=== PATIENT | male | born 1960 | race American Indian/Alaskan Native ===

== ENCOUNTER 2017-02-09 14:32 | Inpatient (IN) | payer BC ==
[2017-02-09] MEDS ORDERED: DECADRON IV ONE (15:15)
[2017-02-09] MEDS ORDERED: BENADRYL IV ONE (15:15)
[2017-02-09] MEDS ORDERED: PEPCID IV ONE (15:15)
--- NOTE | 2017-02-09 15:16 | Emergency Department Report ---
ED General Adult HPI - General Chief complaint: Allergic Reaction Stated complaint: LT SIDE MOUTH AND FACE SWOLLEN Time Seen by Provider: 02/09/17 15:04 Source: patient, RN notes reviewed Mode of arrival: Ambulatory Limitations: No Limitations - History of Present Illness Initial comments: This is a 56-year-old male. He is previously unknown to me. His primary care doctor is Dr. Perkins. Past medical history includes hypertension, alcohol dependence, count. Patient has been on lisinopril chronically. The patient presents to the ER with left lip swelling, and left cheek swelling. It started just prior to evaluation. There is no chest pain or shortness of breath. There is no stridor. There is no nausea, vomiting, diarrhea. There is no hematemesis. There is no bright red blood per rectum. The patient does indicate that he was having some seafood right before this started, he thinks he may have accidentally bit his lip but he is not certain. -: Gradual Location: face, mouth Consistency: constant Improves with: none Worsens with: none Associated Symptoms: denies other symptoms - Related Data Home Medications Medication Instructions Recorded Confirmed Last Taken Amlodipine Besylate [Norvasc] 5 mg PO DAILY 12/18/14 02/09/17 02/09/17 Previous Rx's Medication Instructions Recorded Last Taken Type Cyclobenzaprine [Flexeril 10 MG 10 mg PO TID PRN #15 tablet 05/14/16 Unknown Rx TAB] Famotidine [Pepcid] 20 mg PO BID #20 tablet 02/10/17 Unknown Rx Metoprolol [Lopressor TAB] 50 mg PO DAILY #60 tablet 02/10/17 Unknown Rx Prednisone [predniSONE 10 mg 10 mg PO .TAPER #1 tab.ds.pk 02/10/17 Unknown Rx (6-Day Pack, 21 Tabs)] diphenhydrAMINE [Benadryl CAP] 25 mg PO Q8HR PRN #15 capsule 02/10/17 Unknown Rx Allergies Allergy/AdvReac Type Severity Reaction Status Date / Time lisinopril Allergy Severe Angioedema Verified 02/10/17 10:12 ED Review of Systems ROS: Stated complaint: LT SIDE MOUTH AND FACE SWOLLEN Other details as noted in HPI Constitutional: denies: fever Eyes: denies: vision change ENT: as per HPI. denies: epistaxis Respiratory: denies: cough Cardiovascular: denies: chest pain Gastrointestinal: denies: abdominal pain Genitourinary: as per HPI Musculoskeletal: as per HPI Skin: as per HPI Neurological: as per HPI Psychiatric: as per HPI ED Past Medical Hx - Past Medical History Hx Hypertension: Yes Additional medical history: Alcohol dependence, GOUT - Surgical History Past Surgical History?: No - Social History Smoking Status: Never Smoker Substance Use Type: None - Medications Home Medications: Home Medications Medication Instructions Recorded Confirmed Last Taken Type Amlodipine Besylate [Norvasc] 5 mg PO DAILY 12/18/14 02/09/17 02/09/17 History Cyclobenzaprine [Flexeril 10 MG 10 mg PO TID PRN #15 tablet 05/14/16 02/09/17 Unknown Rx TAB] Famotidine [Pepcid] 20 mg PO BID #20 tablet 02/10/17 Unknown Rx Metoprolol [Lopressor TAB] 50 mg PO DAILY #60 tablet 02/10/17 Unknown Rx Prednisone [predniSONE 10 mg 10 mg PO .TAPER #1 tab.ds.pk 02/10/17 Unknown Rx (6-Day Pack, 21 Tabs)] diphenhydrAMINE [Benadryl CAP] 25 mg PO Q8HR PRN #15 capsule 02/10/17 Unknown Rx ED Physical Exam - General Limitations: No Limitations General appearance: alert, in no apparent distress - Head Head exam: Present: atraumatic, normocephalic - Eye Eye exam: Present: normal appearance, EOMI, nystagmus - ENT ENT exam: Present: mucous membranes moist, normal external ear exam, other ( there is swelling noted to the left superior lip, and left external cheek. There is no stridor, dysphonia. There is no pain with tracheal manipulation. The patient is speaking in full sentences.) - Neck Neck exam: Present: normal inspection, full ROM. Absent: tenderness, meningismus - Respiratory Respiratory exam: Present: normal lung sounds bilaterally. Absent: respiratory distress, wheezes, rales, rhonchi, stridor, chest wall tenderness, accessory muscle use, decreased breath sounds, prolonged expiratory - Cardiovascular Cardiovascular Exam: Present: regular rate, normal rhythm, normal heart sounds. Absent: bradycardia, tachycardia, irregular rhythm, systolic murmur, diastolic murmur, rubs, gallop - GI/Abdominal GI/Abdominal exam: Present: soft, normal bowel sounds. Absent: distended, tenderness, guarding, rebound, rigid, pulsatile mass - Rectal Rectal exam: Present: deferred - Extremities Exam Extremities exam: Present: normal inspection, full ROM, normal capillary refill. Absent: tenderness, pedal edema, joint swelling, calf tenderness - Back Exam Back exam: Present: normal inspection, full ROM. Absent: tenderness, CVA tenderness (R), CVA tenderness (L), muscle spasm, paraspinal tenderness, vertebral tenderness - Neurological Exam Neurological exam: Present: alert, oriented X3, normal gait, other (Extraocular movements intact. Tongue midline. No facial droop. Facial sensation intact to light touch in the V1, V2, V3 distribution bilaterally. 5 and 5 strength in 4 extremities.. Sensation is intact to light touch in 4 extremities.). Absent : motor sensory deficit - Psychiatric Psychiatric exam: Present: normal affect, normal mood - Skin Skin exam: Present: warm, dry, intact, normal color. Absent: rash ED Course Vital Signs 02/09/17 02/09/17 02/09/17 14:37 15:15 19:21 Temperature 97.9 F 98.3 F Pulse Rate 84 76 Respiratory 16 20 Rate Blood Pressure 129/80 Blood Pressure 112/66 [Right] O2 Sat by Pulse 99 100 96 Oximetry - Reevaluation(s) Reevaluation #1: 02/09/17 16:46 Differential diagnosis: JUDD inhibitor related angioedema, local lip trauma Assessment and plan: 56-year-old male with probable JUDD inhibitor angioedema. He is afebrile, with reassuring vital signs, tolerating liquid feeds, speaking without stridor. On his initial examination, there is left lateral lip swelling noted, with no obvious break in the skin, no obvious laceration, or abscess. The patient was treated improved with Benadryl, Pepcid, Decadron, and upon reevaluation, his swelling was noted to have moved to the right side of the lip , as well as inferior lip. He is still protecting his airway, and he is not having any upper respiratory distress. Basic laboratory studies ordered. We will continue to observe the patient. He will likely be admitted for airway observation given that his edema appears to be increasing superficially. Reevaluation #2: 02/09/17 18:19 Patient is reassessed. The swelling has involved his upper lip and lower lip. There is no stridor or dysphonia. He is saturating well. He will be admitted for airway observation. The case is presented to the Hospital physician, Dr. Wolf, who accepts the patient to her service. ED Medical Decision Making - Lab Data Result diagrams: 02/10/17 05:48 02/10/17 05:48 Vital Signs 02/09/17 02/09/17 14:37 15:15 Temperature 97.9 F Pulse Rate 84 Respiratory 16 Rate Blood Pressure 129/80 O2 Sat by Pulse 99 100 Oximetry Critical care attestation.: If time is entered above; I have spent that time in minutes in the direct care of this critically ill patient, excluding procedure time. ED Disposition Clinical Impression: Angioedema Qualifiers: Encounter type: initial encounter Qualified Code(s): T78.3XXA - Angioneurotic edema, initial encounter Disposition: OP ADMITTED IP TO THIS HOSP Is pt being admited?: Yes Does the pt Need Aspirin: No Condition: Good
[2017-02-09 16:52] LABS: Hematocrit 37.4 % (35.5-45.6); Hemoglobin 12.6 gm/dl (11.8-15.2); Mean Corpuscular HGB Conc 34 % (32-34); Mean Corpuscular Hemoglobin 30 pg (28-32); Mean Corpuscular Volume 88 fl (84-94); Platelet Count 245 K/mm3 (140-440); Red Blood Count 4.27 M/mm3 (3.65-5.03); Red Cell Distribution Width 12.6 % (13.2-15.2); White Blood Count 5.2 K/mm3 (4.5-11.0)
[2017-02-09 17:51] LABS: BUN/Creatinine Ratio 13.75; Chloride 94.3 mmol/L (98-107); Potassium 3.6 mmol/L (3.6-5.0)
--- NOTE | 2017-02-09 18:28 | History and Physical Report ---
History of Present Illness Date of examination: 02/09/17 Date of admission: 02/09/17 Chief complaint: lip and cheek swelling since today afternoon History of present illness: Very pleasant 56-year-old -[place] male patient with significant past medical history of hypertension presented to the emergency room with left-sided lip and cheek swelling since this afternoon Patient has been eating didn't to not when he suddenly noticed his lip and cheek started swelling from the left side gradually increased to the entire upper and lower lip Patient has history of hypertension on lisinopril for many years Denies any shortness of breath, stridor, or difficulty swallowing Denies chest pain or palpitations Denies headache dizziness weakness or numbness His nausea vomiting or abdominal pain Patient is not allergic to salmon or seafood Past History Past Medical History: hypertension Past Surgical History: No surgical history Social history: lives with family, alcohol abuse ( occasional alcohol use), full code, 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 denies: smoking, prescription drug abuse Family history: hypertension Medications and Allergies Allergies Allergy/AdvReac Type Severity Reaction Status Date / Time No Known Allergies Allergy Verified 12/18/14 17:51 Home Medications Medication Instructions Recorded Confirmed Last Taken Type Amlodipine Besylate [Norvasc] 5 mg PO DAILY 12/18/14 12/18/14 12/18/14 History Lisinopril [Zestril] 20 mg PO QDAY 12/18/14 12/18/14 12/17/14 History Lisinopril/Hydrochlorothiazide 1 tab PO QDAY 12/18/14 12/18/14 12/18/14 History [Zestoretic 20-25 mg] Metoprolol [Lopressor TAB] 50 mg PO DAILY #20 tablet 12/18/14 Unknown Rx Cyclobenzaprine [Flexeril] 10 mg PO TID PRN #15 tablet 05/14/16 Unknown Rx Ibuprofen [Motrin] 800 mg PO Q8HR PRN #20 tablet 05/14/16 Unknown Rx Review of Systems Constitutional: no weight loss, no weight gain, no fever, no chills Ears, nose, mouth and throat: swelling in mouth (swelling upper and lower lip) , other Cardiovascular: no chest pain, no orthopnea, no palpitations Respiratory: no cough with sputum, no shortness of breath Gastrointestinal: no abdominal pain, no nausea, no vomiting Genitourinary Male: no dysuria, no hematuria Musculoskeletal: no neck stiffness, no muscle weakness, no myalgias, no arthritis Integumentary: other (lip swelling), no rash, no pruritis Neurological: no paralysis, no seizures, no syncope Psychiatric: no anxiety, no depression Endocrine: no cold intolerance, no heat intolerance, no polydipsia, no polyuria Hematologic/Lymphatic: no easy bruising, no easy bleeding Allergic/Immunologic: angioedema, no urticaria, no allergic rhinitis Exam - Constitutional Vitals: Temp Pulse Resp BP Pulse Ox 97.9 F 84 16 129/80 100 02/09/17 14:37 02/09/17 14:37 02/09/17 15:15 02/09/17 14:37 02/09/17 15:15 General appearance: Present: mild distress, well-nourished, obese - EENT Eyes: Present: PERRL, EOM intact ENT: other (angioedema.) - Neck Neck: Present: supple, normal ROM - Respiratory Respiratory effort: normal ( Swelling of upper and lower lip) Respiratory: negative: rales, rhonchi, wheezing - Cardiovascular Rhythm: regular Heart Sounds: Present: S1 & S2 - Extremities Extremities: no ischemia, pulses intact, pulses symmetrical Peripheral Pulses: within normal limits - Abdominal General gastrointestinal: Present: soft, non-tender, non-distended, normal bowel sounds - Integumentary Integumentary: Present: clear, warm - Musculoskeletal Musculoskeletal: strength equal bilaterally - Psychiatric Psychiatric: appropriate mood/affect, cooperative - Neurologic Neurologic: CNII-XII intact, moves all extremities Results - Labs CBC & Chem 7: 02/09/17 16:38 02/09/17 16:38 Labs: Abnormal lab results 02/09/17 02/09/17 Range/Units 16:38 16:38 RDW 12.6 L (13.2-15.2) % Sodium 136 L (137-145) mmol/L Chloride 94.3 L (98-107) mmol/L BUN 22 H (9-20) mg/dL Creatinine 1.6 H (0.8-1.5) mg/dL Glucose 103 H (75-100) mg/dL Total Creatine Kinase 536 H (55-170) units/L Assessment and Plan --Angioedema Probably secondary to lisinopril, hold lisinopril IV steroids, IV Benadryl, oxygen titrated to O2 sats more than 90%, closely monitor for any evidence of respiratory distress or failure --History of hypertension Hold lisinopril, resume Norvasc, when necessary hydralazine Closely monitor --Acute renal failure; probably secondary to vasomotor nephropathy Gentle hydration, closely monitor renal function, avoid nephrotoxic medications --Mild elevation of CK, check drug abuse panel Gentle hydration closely monitor CK levels and renal function --Obesity; counseling done patient advised diet modification and exercise as tolerated and weight reduction When medically stable --DVT prophylaxis; with Lovenox --Closely monitor the patient and adjust the management as needed Disposition; admitted to telemetry for close observation Possible discharge in 1-2 days if stable Patient's condition treatment plan discussed in detail with the patient, ER physician as well as his nurse Medical records reviewed
[2017-02-09] MEDS ORDERED: TYLENOL PO PRN (18:31)
[2017-02-09] MEDS ORDERED: AMBIEN PO PRN (18:31)
[2017-02-09] MEDS ORDERED: APRESOLINE IV PRN (18:31)
[2017-02-09] MEDS ORDERED: BENADRYL IV PRN (18:31)
[2017-02-09] MEDS ORDERED: NACL 0.9% 1000 ML 1,000 ML IV SCH (19:00)
--- NOTE | 2017-02-09 19:10 | Admit Criteria Form ---
Admission Criteria Documentation: SYSTEMIC OR INFECTIOUS CONDITION Clinical Indications for Admission to Inpatient Care (Place 'X' for any and all applicable criteria): Hospital admission is needed for appropriate care of the patient because of ANY ONE of the following: []I. Hemodynamic instability indicated by ANY ONE of the following(1)(2)(3)(4 )(5): []a. Vital sign abnormality not readily corrected by appropriate treatment within 12 to 24 hours indicated by ANY ONE of the following: []i) Tachycardia that persists despite appropriate treatment []ii) Hypotension that persists despite appropriate treatment []iii) Orthostatic vital sign changes that persist despite appropriate treatment []b. Vital sign abnormality that is severe indicated by ANY ONE of the following: []i. Inadequate perfusion indicated by ANY ONE of the following : []1) Lactic acidosis (greater than 2 mmol/L) []2) New abnormal capillary refill (greater than 3 seconds) []3) Reduced urine output []4) New altered mental status []5) Myocardial Ischemia []ii. Mean arterial pressure [A] less than 60 mm Hg []iii. Mean arterial pressure[A] less than 70 mm Hg after 30 minutes of appropriate treatment (eg, fluid resuscitation) []iv. Sustained heart rate greater than 120 beats per minute in adult []v. IV inotropic or vasopressor medication required to maintain adequate blood pressure or perfusion []II. Systemic or infectious condition causing severe symptoms or findings not responsive to emergency or observation care treatment (as appropriate) indicated by ANY ONE of the following: []a. Cardiac arrhythmias of immediate concern(1)(2)(3) []b. Severe endocrine disorder (eg, thyrotoxicosis, adrenal insufficiency)(4)(5) []c. Seizures (eg, new or recurrent)(6) []d. New-onset end organ failure or dysfunction as indicated by ANY ONE of the following: []i. Acute unexplained hypoxemia (eg, not from lung infection or chronic disease)(7)(8)(9) []ii. Acute renal failure as indicated by new onset of ANY ONE of the following(10)(11)(12)(13)(14): []1) 3-fold rise in serum creatinine from baseline []2) Serum creatinine greater than 4 mg/dL (354 micromoles/L) with acute rise greater than 0.5 mg/dL (44.2 micromoles/L) []3) Reduction of more than 75% in estimated glomerular filtration rate from baseline. []4) Estimated glomerular filtration rate less than 35 mL/min/1.73m2 ( 0.59 mL/sec/1.73m2) in child younger than 18 years. []5) Cessation of urine output indicated by ALL of the following: []A. Adequate volume status []B. Inadequate urine output as indicated by ANY ONE of the following: []a. Urine output less than 0.3 mL/kg/hr for 24 hours []b. Anuria (urine output less than 0.1 mL/kg/hr) for 12 hours []iii. Acute mental status changes(15) []iv. Acute hepatic failure (eg, plasma bilirubin greater than 4 mg/ dL (68 micromoles/L), new INR greater than 2.0)(16)(17) []e. Unmanageable nausea and vomiting(18) []f. New-onset or uncontrolled central diabetes insipidus(19)(20) []g. Clinically significant dehydration(18)(21) []h. Hypoglycemia(22) []i. Acidosis (pH less than 7.35) or alkalosis (pH greater than 7.45)( 22)(23) []j. Toxic drug level that indicates need for specific monitoring or treatment(24)(25) []k. Severe electrolyte abnormalities indicated by ALL of the following( 1)(2)(3): []i. Electrolytes and associated findings are not as expected for patient baseline or acceptable treatment effects. []ii. Severe abnormalities indicated by ANY ONE of the following: []1) Sodium less than 130 mEq/L (mmol/L) (new) []2) Sodium less than 135 mEq/L (mmol/L) with ANY ONE of the following: []A. Uncorrectable (to near normal or chronic baseline) after trial of outpatient and emergency treatment []B. Altered mental status []C. Seizures []D. Severe medical etiology requiring inpatient management (eg , heart failure, hypovolemia) []3) Sodium greater than 155 mEq/L (mmol/L) []4) Sodium greater than 150 mEq/L (mmol/L) with ANY ONE of the following: []A. Uncorrectable (to near normal or chronic baseline) with outpatient and emergency treatment []B. Altered mental status []C. Seizures []D. Severe medical etiology (eg, hypovolemia, diabetes insipidus) []5) Potassium less than 2.5 mEq/L (mmol/L) despite outpatient and emergency treatment []6) Potassium less than 3 mEq/L (mmol/L) with ANY ONE of the following : []A. Weakness []B. Cardiac abnormality (eg, arrhythmia, conduction disturbance ) []C. Cardiac ischemia []D. Ileus []E. Ongoing medical cause requiring inpatient management (eg, acute renal wasting or SIADH) []F. Other severe symptoms []7) Potassium greater than 6.5 mEq/L (mmol/L) []8) Potassium greater than 5 mEq/L (mmol/L) with ANY ONE of the following: []A. Uncorrectable (to near normal or chronic baseline) with outpatient and emergency treatment []B. Severe ECG findings[A] []C. Acute worsening of renal failure (creatinine greater than 2.5 mg/dL (221 micromoles/L) or significant elevation for age and size) []D. Severe weakness []E. Severe medical etiology (eg, hemolysis, infection, drug overdose) []9) Calcium less than 7 mg/dL (1.75 mmol/L) despite outpatient and emergency treatment(5) []10) Calcium less than 8 mg/dL (2 mmol/L) with significant symptoms or findings (eg, altered mental status, muscle spasms, seizures, breathing difficulty, cardiac abnormality (eg, arrhythmia or conduction disturbance))(5) []11) Calcium greater than 14 mg/dL (3.5 mmol/L)(5) []12) Calcium greater than 12 mg/dL (3 mmol/L) with ANY ONE of the following(5): []A. Uncorrectable (to near normal or chronic baseline) with outpatient and emergency treatment []B. Significant dehydration or hypovolemia as indicated by ALL of the following(3)(6)(7): []a. Not resolved with initial treatments []b. Clinically significant dehydration as indicated by ANY ONE of the following: [](1) Vomiting refractory to outpatient treatment (ie, precluding oral rehydration) [](2) Inability to drink [](3) Hypernatremia or other electrolyte abnormality unable to be corrected with outpatient and emergency treatment [](4) Failure to remain hydrated with outpatient therapy [](5) Reduced urine output [](6) Hypotension [](7) Serious cause for dehydration requiring acute hospitalization ( eg, bowel obstruction, increased intracranial pressure, infectious cause) [](8) Child with ANY ONE of the following(8): [](i) Severe abdominal tenderness [](ii) Adequate care not available at home [](iii) Severe dehydration (greater than 9% loss of body weight) []C. Significant symptoms or findings (eg, altered mental status , cardiac abnormality (eg, arrhythmia, conduction disturbance), malignant etiology requiring inpatient treatment) []13) Phosphorus less than 1 mg/dL (0.32 mmol/L) []14) Phosphorus less than 1.5 mg/dL (0.48 mmol/L) with ANY ONE of the following: []A. Patient unresponsive to outpatient and emergency treatment []B. Significant symptoms or findings (eg, weakness, altered mental status, breathing difficulty, seizures, rhabdomyolysis) []15) Phosphorus greater than 10 mg/dL (3.2 mmol/L) []16) Phosphorus greater than 4.5 mg/dL (1.45 mmol/L) (new) with ANY ONE of the following: []A. Severe medical etiology (eg, crush injury, acute renal failure) []B. Associated hypocalcemia with significant findings (eg, neurologic symptoms, altered mental status, muscle spasms, seizures, breathing difficulty, cardiac abnormality (eg, arrhythmia, conduction disturbance)) []16) Magnesium less than 1 mg/dL (0.41 mmol/L) []17) Magnesium less than 1.5 mg/dL (0.62 mmol/L) with ANY ONE of the following: []A. Patient unresponsive to outpatient and emergency treatment []B. Associated hypocalcemia with significant findings (eg, altered mental status, muscle spasms, seizures, breathing difficulty, cardiac abnormality (eg, arrhythmia, conduction disturbance)) []C. Associated hypokalemia (potassium less than 3 mEq/L (mmol/L )) with risk of arrhythmia []18) Magnesium greater than 4 mEq/L (2 mmol/L) []19) Magnesium greater than 2.5 mEq/L (1.25 mmol/L) with significant symptoms or findings (eg, weakness, altered mental status, cardiac abnormality (eg, arrhythmia, conduction disturbance), breathing difficulty, severe medical etiology (eg, renal failure, hypovolemia)) []20) Uric acid greater than 20 mg/dL (1190 micromoles/L)(9) []21) Uric acid greater than 8 mg/dL (476 micromoles/L) with significant symptoms or findings of tumor lysis syndrome (eg, creatinine greater than 1.5 times upper limit of normal, cardiac abnormality (eg , arrhythmia, conduction disturbance), seizure)(9) []III. High fever or other high-risk infection situation as indicated by ANY ONE of the following(26)(27)(28): []a. Outpatient and observation care antimicrobial treatment unavailable, not effective, or not appropriate []b. Documented bacteremia []c. Temperature greater than 104.9 degrees F (40.5 degrees C) (oral) []d. Temperature greater than 103.1 degrees F (39.5 degrees C) (oral) or less than 96.8 degrees F (36 degrees C) (rectal) that does not respond to emergency treatment and observation care []IV. High-risk febrile neutropenia[A] as indicated by ANY ONE of the following(29)(30)(31)(32): []a. Profound neutropenia[B] anticipated to extend for more than 7 days []b. Hemodynamic instability []c. Hypoxemia []d. Tachypnea []e. Altered mental status []f. New-onset abdominal pain []g. New-onset vomiting or diarrhea []h. Oral or gastrointestinal mucositis that interferes with swallowing or causes severe diarrhea []i. Focal infection (eg, cellulitis, pneumonia, central line or catheter infection, perirectal abscess) []j. Renal insufficiency (eg, GFR of less than 30 mL/min/1.73m2 (0.5 mL/sec /1.73m2)). []k. Severe liver dysfunction (transaminase levels greater than 5 times normal) []l. Platelet count less than 50,000/mm3 (50 x109/L)(33) []m. Leukemia or lymphoma induction therapy []n. Leukemia not in complete remission or with evidence of disease progression []o. Bone marrow transplant patient []p. Alemtuzumab being used for therapy []q. [employer] Association for Supportive Care in Cancer (MASCC) Risk Index score of less than 21[C](33)(35). []V. Isolation required (eg, tuberculosis that requires isolation, Ebola infection)[D](36)(37)(38)(39)(40) []. Gangrene that requires treatment beyond emergency or observation level care(41)(42) []VII. Antitoxin administration and ongoing observation required (eg, tetanus, botulism)(43)(44) []. Suspected infection with rapid progression or severe symptoms as indicated by ANY ONE of the following(45): []a. Streptococcal or staphylococcal toxic shock(46) []b. Diphtheria(47) []c. Hantavirus(48) []d. Severe acute respiratory syndrome(8)(49) []e. Anthrax(50) []f. Ebola[D](36)(37)(38) []g. Necrotizing soft tissue infection(41)(42) []h. Plague(50) []i. Other suspected infection that requires care beyond emergency or observation level care []VII. Severe adverse drug or systemic toxin reaction as indicated by ANY ONE of the following(24): []a. Serotonin syndrome(51)(52) []b. Neuroleptic malignant syndrome(51)(52) []c. Cholinergic syndrome with severe symptoms (eg, bronchorrhea, weakness , mental status changes, seizures)(53) []d. Anticholinergic syndrome []e. Sympathetic syndrome with severe symptoms (eg, seizures, mental status changes, cardiac dysrhythmias) []f. Other severe adverse drug or systemic toxin reaction that remains after emergency or observation level care (as appropriate) []VIII. Allergic reaction with severe symptoms (not responsive to emergency or observation care treatment as appropriate), including ANY ONE of the following(54): []a. Airway edema (pharyngeal, epiglottic, or laryngeal edema) []b. Stridor []c. Respiratory failure []d. Bronchospasm []e. Hypotension []IX. Environmental emergency (not responsive to emergency or observation care treatment as appropriate) as indicated by ANY ONE of the following(55)(56): []a. Hyperthermia []b. Heat stroke []c. Heat exhaustion []d. Hypothermia (temperature less than 95 degrees F (35 degrees C) rectal) (57) []e. Electrocution(58) []X. Complications of transplanted organ (ie, not covered elsewhere)[E] indicated by ANY ONE of the following(59): []a. Acute graft rejection (or graft vs. host disease)[F] requiring inpatient management (eg, intravenous immunosuppression)(60)(61)(62)( 63) []b. Acute failure of transplanted organ necessitating inpatient care (eg, cannot be managed in other setting) []c. Infection requiring inpatient management (eg, Hemodynamic instability, need for intravenous antimicrobial treatment)(64)(65) []d. Other complication of transplanted organ requiring inpatient management [X]XI. Systemic or Infectious Condition condition, symptom, or finding for which emergency and observation care have failed or are not considered appropriate. See General Criteria: Observation Care, General Admission Criteria or Pediatric General Admission Criteria guideline as appropriate. The original [facility] content created by [facility] has been revised. The portions of the content which have been revised are identified through the use of italic text or in bold and [facility] has neither reviewed nor approved the modified material. All other unmodified content is copyright [facility]. Please see references footnoted in the original [facility] edition 2016 Admission Criteria Met: Yes
--- NOTE | 2017-02-09 19:24 | XRay Report ---
FINAL REPORT PROCEDURE: XR CHEST 1V AP TECHNIQUE: Chest radiograph anteroposterior view. CPT 94531 HISTORY: angioedema COMPARISON: No prior studies are available for comparison. FINDINGS: Heart: Normal. Mediastinum/Vessels: Normal contour. Lungs/Pleural space: No infiltrate, effusion, or pneumothorax. Bony thorax: No acute osseous abnormality. Life support devices: None. IMPRESSION: No radiographic evidence of acute cardiopulmonary abnormality.
[2017-02-09 21:14] LABS: Urine Drugs of Abuse Note Disclamer
[2017-02-09] MEDS ORDERED: LOVENOX SUB-Q SCH (22:00)
[2017-02-09] MEDS: PEPCID PO SCH (23:05)
[2017-02-09] MEDS: DECADRON IV SCH (23:13)
[2017-02-10] MEDS: DECADRON IV SCH ×3 (05:25→19:05)
[2017-02-10 06:30] LABS: Basophils % (Auto) 0.1 % (0.0-1.8); Hematocrit 41.5 % (35.5-45.6); Mean Corpuscular HGB Conc 34 % (32-34); Mean Corpuscular Hemoglobin 29 pg (28-32); Mean Corpuscular Volume 87 fl (84-94); Platelet Count 277 K/mm3 (140-440); Red Blood Count 4.75 M/mm3 (3.65-5.03); Red Cell Distribution Width 12.5 % (13.2-15.2); White Blood Count 7.7 K/mm3 (4.5-11.0)
[2017-02-10 06:52] LABS: Anion Gap 23 mmol/L; BUN/Creatinine Ratio 15.71; Blood Urea Nitrogen 22 mg/dL (9-20); Calcium 9.4 mg/dL (8.4-10.2); Carbon Dioxide 23 mmol/L (22-30); Chloride 98.1 mmol/L (98-107); Glucose 162 mg/dL (75-100); Potassium 3.9 mmol/L (3.6-5.0); Sodium 140 mmol/L (137-145)
[2017-02-10] MEDS: PEPCID PO SCH (09:01)
[2017-02-10] MEDS ORDERED: LOPRESSOR PO SCH (10:00)
--- NOTE | 2017-02-10 10:14 | Discharge Summary ---
Providers - Providers Date of Admission: 02/09/17 18:21 Date of discharge: 02/10/17 Attending physician: ALISON JONES Primary care physician: CAITLIN YOU Hospitalization Reason for admission: angioedema Condition: Good Pertinent studies: X-ray; normal Hospital course: Very pleasant 56-year-old -[place] male patient with significant past medical history of hypertension on lisinopril, was admitted through emergency room with history of angioedema secondary to lisinopril allergy with the swelling of upper and lower lip and cheek Patient received high dose of IV steroids and antihistamines, admitted to the hospital managed symptomatically Lisinopril was stopped, and strongly advised the patient that he is allergic to lisinopril and cannot take lisinopril or related ACEI group of medications Patient's blood pressures were closely monitored medications were optimized Today he is comfortable in bed, alert awake oriented 3 Lip and cheek swelling significantly improved, still mild swelling is noted, no shortness of breath or stridor, no difficulty swallowing Patient is ambulatory and tolerating oral nutrition [id number] evaluation physical examination done by me prior to discharge is unremarkable Vital signs are stable Patient is being discharged home, advised to discuss rest and will follow with primary care physician within to 3 days Hemodynamically and clinically stable for discharge and does not need any further acute inpatient care this time Final diagnosis; Angioedema Allergic reaction to lisinopril Hypertension Obesity History of gout Disposition: DISCHARGED TO HOME OR SELFCARE Time spent for discharge: 31 min Core Measure Documentation - Palliative Care Palliative Care/ Comfort Measures: Not Applicable - Core Measures Any of the following diagnoses?: none Exam - Constitutional Vitals: Temp Pulse Resp BP Pulse Ox 99.1 F 71 18 138/73 99 02/10/17 08:00 02/10/17 08:00 02/10/17 08:00 02/10/17 08:00 02/10/17 08:00 General appearance: Present: no acute distress, well-nourished - EENT Eyes: Present: PERRL, EOM intact ENT: other (lip swelling significantly improved) - Neck Neck: Present: supple, normal ROM - Respiratory Respiratory effort: normal Respiratory: negative: rales, rhonchi, wheezing - Cardiovascular Rhythm: regular Heart Sounds: Present: S1 & S2 - Extremities Extremities: no ischemia, pulses intact, pulses symmetrical Peripheral Pulses: within normal limits - Abdominal General gastrointestinal: Present: soft, non-tender, non-distended, normal bowel sounds - Integumentary Integumentary: Present: clear, warm - Musculoskeletal Musculoskeletal: strength equal bilaterally - Psychiatric Psychiatric: appropriate mood/affect, cooperative - Neurologic Neurologic: CNII-XII intact, moves all extremities Plan Activity: no restrictions Diet: low salt Additional Instructions: You serious allergic reaction [angioedema] to Lisinopril. Do not take Lisinopril or ACEI inhibitor group of medications. Advised 2 days rest on 02/11/17 and 02/12/17. Check with primary care physician for further instructions Follow up with: PRIMARY CARE, [Referring] - 3-5 Days Forms: Work/School Release Form Prescriptions: diphenhydrAMINE [Benadryl CAP] 25 mg PO Q8HR PRN #15 capsule PRN Reason: Allergy Symptoms Famotidine [Pepcid] 20 mg PO BID #20 tablet Metoprolol [Lopressor TAB] 50 mg PO DAILY #60 tablet Prednisone [predniSONE 10 mg (6-Day Pack, 21 Tabs)] 10 mg PO .TAPER #1 tab.ds.pk
--- NOTE | 2017-02-10 15:09 | Admit Criteria Form ---
Admission Criteria Documentation: RENAL FAILURE, ACUTE Clinical Indications for Admission to Inpatient Care ( Place 'X' for any and all applicable criteria): Admission is indicated for ALL (if I & II) or III of the following [A](2)(3)(4)( 5)(6)(7): [ ]I. Acute renal failure as indicated by ANY ONE of the following: [ ]a) A 3-fold rise in serum creatinine from baseline [ ]b) Serum creatinine greater than 4 mg/dL (354 micromoles/L) with an acute rise greater than 0.5 mg/dL (44.2 micromoles/L) [ ]c) Reduction of more than 75% in estimated glomerular filtration rate from baseline [ ]d) Estimated glomerular filtration rate less than 35 mL/min/1.73m2 (0.59mL/sec/1.73m2)in a child up to 18 years of age [ ]e) Anuria indicated by ALL of the following: [ ]i) Adequate volume status [ ]ii) Cessation of urine output indicated by ANY ONE of the following: [ ]1) Urine output less than 0.3 mL/kg/hr for 24 hours [ ]2) Anuria (urine output less than 0.1 mL/kg/ hr) for 12 hours [ ] II. Renal failure cannot be managed in an outpatient setting or observational care setting as indicating by ANY ONE of the following: [ ]a) Altered mental status that is severe or persistent [ ]b) Volume overload or Respiratory distress (eg, clinically significant pulmonary edema) that is severe or persistent [ ]c) Cardiac arrhythmias of immediate concern [ ]d) Hemodynamic instability [ ]e) Clinically significant electrolyte abnormality that requires inpatient care (eg, hyperkalemia with severe ECG findings)[B] [ ]f) Clinically significant metabolic abnormality (eg, acidosis) that is severe or persistent [ ]g) Acute treatment of renal failure (eg, renal replacement therapy) not feasible or appropriate in observational care setting [ ]h) Clinical situation too unstable or uncertain (eg, inadequate urine output, ongoing decline in renal function, etiology unclear) [ ]i) Necessary support and caregiver ability to comply with outpatient treatment cannot be arranged in observation care timeframe (eg, within 24 hours) [ ]j) Other significant finding or clinical condition judged not to be within scope of observation care [ ]III.General contraindications and/or Inappropriate clinical situations for Observational Care in patients with Acute Renal Failure, when ANY ONE of the following is required: [ ]a) Prediction of prolongation of LOS based on ANY ONE of the following may be considered as a contraindication for observational care 2, 3, 4, 5, 6, 7, 8 , 9, 10, 11 [ ]i) Age > 65 yrs. [ ]ii) Patient arriving by ambulance [ ]iii) Patient with high acuity [ ]iv) Patient requiring vital sign monitoring [ ]v) Patient on IV medication [ ]b) Systolic blood pressures 180mmHg 3,12 [ ]c) Patient with altered mental status including delirium and other alteration of consciousness, (3) [ ]d) Patient whose discharge disposition will be to a senior living home or rehabilitation home should not be managed in Emergency Department Observation Unit. CMS rule requires 3 days hospital stay before such placement.3,13 [ ]e) Patient with failure to thrive due to broad array of etiologies 3, 16,17 [ ]f) Inability to ambulate 3,14 Extended stay beyond goal length of stay may be needed for(13) [ ]a) Continuing uremic complications [ ]b) Care for comorbidities [ ]c) acute renal failure [ ]d) Need for dialysis The original [employer] content created by [employer] has been revised. The portions of the content which have been revised are identified through the use of italic text or in bold, and [facility] has neither reviewed nor approved the modified material. All other unmodified content is copyright [employer]. Please see references footnoted in the original [facility] edition 2016 Admission Criteria Met: Yes
[2017-02-10 20:19] VITALS: BP 134/76
[2017-02-11] MEDS ORDERED: ZYLOPRIM PO SCH (10:00)
[2017-02-11] MEDS ORDERED: NORVASC PO SCH (10:00)
[2017-02-11] MEDS ORDERED: THALITONE PO SCH (10:00)
== END 2017-02-10 21:30 | disposition home or self-care (01) | DRG 915 ==
LOC: ED 14:32 → 4A 18:21
PROVIDERS: ADMIT Internal Medicine; ATTEND Internal Medicine
DX: T78.3XXA Angioneurotic edema, initial encounter (principal); N17.0 Acute kidney failure with tubular necrosis; E66.9 Obesity, unspecified; I10 Essential (primary) hypertension; T46.4X5A Adverse effect of angiotensin-converting-enzyme inhibitors, initial encounter; M10.9 Gout, unspecified; Z82.49 Family history of ischemic heart disease and other diseases of the circulatory system; Z68.31 Body mass index [BMI] 31.0-31.9, adult; F10.20 Alcohol dependence, uncomplicated; Z71.3 Dietary counseling and surveillance
CPT/HCPCS: 36415; 71010; 80048; 80307; 82550; 83735; 85025; 85027; 85610; 96374; 96375; J1100; J1200; J1650; J7030

== ENCOUNTER 2017-04-27 10:55 | Emergency (ER) | payer BC, OTHER ==
[2017-04-27] MEDS ORDERED: NACL 0.9% 1000 ML 1,000 ML ONE (11:03)
--- NOTE | 2017-04-27 12:09 | Emergency Department Report ---
ED Chest Pain HPI - General Chief Complaint: Chest Pain Stated Complaint: CHEST PAIN Time Seen by Provider: 04/27/17 11:57 Source: patient Mode of arrival: Ambulatory Limitations: No Limitations - History of Present Illness Initial Comments: Patient is a 56 years old male complaining of bilateral chest pain left and right is been going on for 2 days he stated that he held a friends putting on floor in he said he had a lot of smells in starts having some shortness of breath and cough he describes his pain as a sharp pain mostly on the right side increase when he take a deep breath he denied any fever he admitted that he is having greenish sputum. No nausea or vomiting MD Complaint: chest pain -: days(s) Onset: during rest, during exertion Pain Location: left chest, right chest Severity scale (0 -10): 5 Quality: sharp re: denies: nausea, vomting, dyspnea Other Symptoms: cough. denies: fever - Related Data Home Medications Medication Instructions Recorded Confirmed Last Taken Amlodipine Besylate [Norvasc] 5 mg PO DAILY 12/18/14 02/09/17 02/09/17 Allopurinol 02/10/17 Unknown Allopurinol [Zyloprim] 100 mg PO QDAY 02/10/17 02/10/17 Unknown Chlorthalidone [Chlorthalidone] 25 PO 02/10/17 Unknown Previous Rx's Medication Instructions Recorded Last Taken Type Cyclobenzaprine [Flexeril 10 MG 10 mg PO TID PRN #15 tablet 05/14/16 Unknown Rx TAB] Famotidine [Pepcid] 20 mg PO BID #20 tablet 02/10/17 Unknown Rx Metoprolol [Lopressor TAB] 50 mg PO DAILY #60 tablet 02/10/17 Unknown Rx Prednisone [predniSONE 10 mg 10 mg PO .TAPER #1 tab.ds.pk 02/10/17 Unknown Rx (6-Day Pack, 21 Tabs)] diphenhydrAMINE [Benadryl CAP] 25 mg PO Q8HR PRN #15 capsule 02/10/17 Unknown Rx Ciprofloxacin HCl [Ciprofloxacin 500 mg PO Q12H #20 tab 04/27/17 Unknown Rx TAB] Hydrochlorothiazide [HCTZ] 25 mg PO QDAY #30 tablet 04/27/17 Unknown Rx Metoprolol [Lopressor TAB] 50 mg PO BID #30 tablet 04/27/17 Unknown Rx amLODIPine [Norvasc] 10 mg PO DAILY #30 tab 04/27/17 Unknown Rx Allergies Allergy/AdvReac Type Severity Reaction Status Date / Time lisinopril Allergy Severe Angioedema Verified 02/10/17 10:12 Heart Score - HEART Score History: Slightly suspicious EKG: Normal Age: 45-65 Risk factors: 1-2 risk factors Troponin: < normal limit HEART Score: 2 - Critical Actions Critical Actions: 0-3 pts:0.9-1.7%risk of adverse cardiac event.Candidate for discharge ED Review of Systems ROS: Stated complaint: CHEST PAIN Other details as noted in HPI Comment: All other systems reviewed and negative Constitutional: denies: chills, fever Respiratory: cough. denies: shortness of breath Cardiovascular: chest pain Gastrointestinal: denies: nausea, vomiting ED Past Medical Hx - Past Medical History Previous Medical History?: Yes Hx Hypertension: Yes Hx GERD: Yes Additional medical history: Alcohol dependence, GOUT - Surgical History Past Surgical History?: No - Social History Smoking Status: Former Smoker Substance Use Type: Alcohol, Non Opiate Pain, Prescribed - Medications Home Medications: Home Medications Medication Instructions Recorded Confirmed Last Taken Type Amlodipine Besylate [Norvasc] 5 mg PO DAILY 12/18/14 02/09/17 02/09/17 History Cyclobenzaprine [Flexeril 10 MG 10 mg PO TID PRN #15 tablet 05/14/16 02/09/17 Unknown Rx TAB] Allopurinol 02/10/17 Unknown History Allopurinol [Zyloprim] 100 mg PO QDAY 02/10/17 02/10/17 Unknown History Chlorthalidone [Chlorthalidone] 25 PO 02/10/17 Unknown History Famotidine [Pepcid] 20 mg PO BID #20 tablet 02/10/17 Unknown Rx Metoprolol [Lopressor TAB] 50 mg PO DAILY #60 tablet 02/10/17 Unknown Rx Prednisone [predniSONE 10 mg 10 mg PO .TAPER #1 tab.ds.pk 02/10/17 Unknown Rx (6-Day Pack, 21 Tabs)] diphenhydrAMINE [Benadryl CAP] 25 mg PO Q8HR PRN #15 capsule 02/10/17 Unknown Rx Ciprofloxacin HCl [Ciprofloxacin 500 mg PO Q12H #20 tab 04/27/17 Unknown Rx TAB] Hydrochlorothiazide [HCTZ] 25 mg PO QDAY #30 tablet 04/27/17 Unknown Rx Metoprolol [Lopressor TAB] 50 mg PO BID #30 tablet 04/27/17 Unknown Rx amLODIPine [Norvasc] 10 mg PO DAILY #30 tab 04/27/17 Unknown Rx ED Physical Exam - General Limitations: No Limitations General appearance: alert - Neck Neck exam: Present: normal inspection - Respiratory Respiratory exam: Present: normal lung sounds bilaterally. Absent: respiratory distress, wheezes, rales, rhonchi, stridor, accessory muscle use, decreased breath sounds, prolonged expiratory - Cardiovascular Cardiovascular Exam: Present: regular rate, normal rhythm, normal heart sounds - GI/Abdominal GI/Abdominal exam: Present: soft. Absent: distended, tenderness, guarding, rebound, rigid, normal bowel sounds - Neurological Exam Neurological exam: Present: alert, oriented X3 - Skin Skin exam: Present: warm, normal color ED Course Vital Signs 04/27/17 04/27/17 04/27/17 11:12 11:59 12:11 Temperature 97.8 F 98.5 F Pulse Rate 77 76 Respiratory 18 12 12 Rate Blood Pressure 150/96 Blood Pressure 145/92 [Left] O2 Sat by Pulse 99 99 Oximetry - Reevaluation(s) Reevaluation #1: 04/27/17 14:30 Patient is stated that he is feeling much better ED Medical Decision Making - Lab Data Result diagrams: 04/27/17 11:47 04/27/17 11:47 - Medical Decision Making The EKG studies x-ray of blood work and I wanted this is acute bronchitis,I will refill his blood pressure medication and asked to follow up with his primary care physician Critical care attestation.: If time is entered above; I have spent that time in minutes in the direct care of this critically ill patient, excluding procedure time. ED Disposition Clinical Impression: Chest pain, Acute bronchitis Disposition: DC-01 TO HOME OR SELFCARE Is pt being admited?: No Condition: Stable Instructions: Chest Pain (ED), Acute Bronchitis (ED)
[2017-04-27 12:11] LABS: Basophils % (Auto) 0.6 % (0.0-1.8); Eosinophils % (Auto) 1.6 % (0.0-4.3); Hematocrit 40.4 % (35.5-45.6); Mean Corpuscular HGB Conc 35 % (32-34); Mean Corpuscular Hemoglobin 30 pg (28-32); Mean Corpuscular Volume 86 fl (84-94); Platelet Count 236 K/mm3 (140-440); Red Blood Count 4.67 M/mm3 (3.65-5.03); Red Cell Distribution Width 12.9 % (13.2-15.2); White Blood Count 5.8 K/mm3 (4.5-11.0)
--- NOTE | 2017-04-27 12:11 | XRay Report ---
CHEST TWO VIEWS: 04/27/17 10:55:00 CLINICAL: Shortness of breath. COMPARISON: 02/09/17 FINDINGS: Normal heart and pulmonary vasculature. The lungs are normally expanded and clear. Degenerative change in the spine. IMPRESSION: No acute cardiopulmonary process.
[2017-04-27 12:31] LABS: Anion Gap 18 mmol/L; BUN/Creatinine Ratio 8.23; Blood Urea Nitrogen 14 mg/dL (9-20); Calcium 8.8 mg/dL (8.4-10.2); Carbon Dioxide 28 mmol/L (22-30); Chloride 96.4 mmol/L (98-107); Glucose 95 mg/dL (75-100); Potassium 3.2 mmol/L (3.6-5.0); Sodium 139 mmol/L (137-145)
[2017-04-27 15:21] VITALS: BP 146/87
== END 2017-04-27 15:19 | disposition home or self-care (01) ==
LOC: ED 10:55
DX: J20.9 Acute bronchitis, unspecified (principal); R07.9 Chest pain, unspecified; I10 Essential (primary) hypertension; K21.9 Gastro-esophageal reflux disease without esophagitis; Z87.891 Personal history of nicotine dependence; Z88.6 Allergy status to analgesic agent
CPT/HCPCS: 36415; 71020; 80048; 84484; 85025; 93005; 93010; J7030

== ENCOUNTER 2017-08-25 05:35 | Emergency (ER) | payer OTHER ==
--- NOTE | 2017-08-25 06:29 | Emergency Department Report ---
- General Chief Complaint: Upper Respiratory Infection Stated Complaint: COUGH Time Seen by Provider: 08/25/17 06:28 Source: patient Mode of arrival: Ambulatory Limitations: No Limitations - History of Present Illness Initial Comments: 56-year-old male past medical history HTN, GERD, gout, history of alcohol abuse presents with complaint of 5 days of persistent cough with yellow phlegm subjective chills. States he is having some body aches. Awake alert and oriented 3 speaking in full sentences, no trismus no stridor no wheezing. Pt also requesting refill on HTN meds, has been out of them for 4 days. MD Complaint: cough Onset/Timin -: days(s) Severity: moderate Consistency: constant Improves With: nothing, OTC cold medicine Associated Symptoms: cough Treatments Prior to Arrival: none - Related Data Home Medications Medication Instructions Recorded Confirmed Last Taken Amlodipine Besylate [Norvasc] 5 mg PO DAILY 12/18/14 02/09/17 02/09/17 Allopurinol 02/10/17 Unknown Allopurinol [Zyloprim] 100 mg PO QDAY 02/10/17 02/10/17 Unknown Chlorthalidone [Chlorthalidone] 25 PO 02/10/17 Unknown Previous Rx's Medication Instructions Recorded Last Taken Type Cyclobenzaprine [Flexeril 10 MG 10 mg PO TID PRN #15 tablet 05/14/16 Unknown Rx TAB] Famotidine [Pepcid] 20 mg PO BID #20 tablet 02/10/17 Unknown Rx Metoprolol [Lopressor TAB] 50 mg PO DAILY #60 tablet 02/10/17 Unknown Rx Prednisone [predniSONE 10 mg 10 mg PO .TAPER #1 tab.ds.pk 02/10/17 Unknown Rx (6-Day Pack, 21 Tabs)] diphenhydrAMINE [Benadryl CAP] 25 mg PO Q8HR PRN #15 capsule 02/10/17 Unknown Rx Ciprofloxacin HCl [Ciprofloxacin 500 mg PO Q12H #20 tab 04/27/17 Unknown Rx TAB] Hydrochlorothiazide [HCTZ] 25 mg PO QDAY #30 tablet 04/27/17 Unknown Rx Metoprolol [Lopressor TAB] 50 mg PO BID #30 tablet 04/27/17 Unknown Rx amLODIPine [Norvasc] 10 mg PO DAILY #30 tab 04/27/17 Unknown Rx ALBUTEROL Inhaler [ProAir HFA 2 puff IH QID PRN #1 inhalation 08/25/17 Unknown Rx Inhaler] Acetaminophen [Acetaminophen TAB] 500 mg PO Q6HR PRN #30 tablet 08/25/17 Unknown Rx Benzonatate [Tessalon Perles] 100 mg PO Q8HR PRN #30 capsule 08/25/17 Unknown Rx Chlorthalidone 25 mg PO QDAY #30 tablet 08/25/17 Unknown Rx Levofloxacin [Levaquin] 750 mg PO QDAY #5 tablet 08/25/17 Unknown Rx amLODIPine [Norvasc] 10 mg PO DAILY #30 tab 08/25/17 Unknown Rx Allergies Allergy/AdvReac Type Severity Reaction Status Date / Time lisinopril Allergy Severe Angioedema Verified 02/10/17 10:12 ED Review of Systems ROS: Stated complaint: COUGH Other details as noted in HPI Constitutional: denies: chills, fever Eyes: denies: eye pain, eye discharge, vision change ENT: denies: ear pain, throat pain Respiratory: cough. denies: shortness of breath, wheezing Cardiovascular: denies: chest pain, palpitations Endocrine: no symptoms reported Gastrointestinal: denies: abdominal pain, nausea, diarrhea Genitourinary: denies: urgency, dysuria Musculoskeletal: denies: back pain, joint swelling, arthralgia Skin: denies: rash, lesions Neurological: denies: headache, weakness, paresthesias Psychiatric: denies: anxiety, depression Hematological/Lymphatic: denies: easy bleeding, easy bruising ED Past Medical Hx - Past Medical History Previous Medical History?: Yes Hx Hypertension: Yes Hx GERD: Yes Additional medical history: Alcohol dependence, GOUT - Surgical History Past Surgical History?: No - Social History Smoking Status: Current Every Day Smoker - Medications Home Medications: Home Medications Medication Instructions Recorded Confirmed Last Taken Type Amlodipine Besylate [Norvasc] 5 mg PO DAILY 12/18/14 02/09/17 02/09/17 History Cyclobenzaprine [Flexeril 10 MG 10 mg PO TID PRN #15 tablet 05/14/16 02/09/17 Unknown Rx TAB] Allopurinol 02/10/17 Unknown History Allopurinol [Zyloprim] 100 mg PO QDAY 02/10/17 02/10/17 Unknown History Chlorthalidone [Chlorthalidone] 25 PO 02/10/17 Unknown History Famotidine [Pepcid] 20 mg PO BID #20 tablet 02/10/17 Unknown Rx Metoprolol [Lopressor TAB] 50 mg PO DAILY #60 tablet 02/10/17 Unknown Rx Prednisone [predniSONE 10 mg 10 mg PO .TAPER #1 tab.ds.pk 02/10/17 Unknown Rx (6-Day Pack, 21 Tabs)] diphenhydrAMINE [Benadryl CAP] 25 mg PO Q8HR PRN #15 capsule 02/10/17 Unknown Rx Ciprofloxacin HCl [Ciprofloxacin 500 mg PO Q12H #20 tab 04/27/17 Unknown Rx TAB] Hydrochlorothiazide [HCTZ] 25 mg PO QDAY #30 tablet 04/27/17 Unknown Rx Metoprolol [Lopressor TAB] 50 mg PO BID #30 tablet 04/27/17 Unknown Rx amLODIPine [Norvasc] 10 mg PO DAILY #30 tab 04/27/17 Unknown Rx ALBUTEROL Inhaler [ProAir HFA 2 puff IH QID PRN #1 inhalation 08/25/17 Unknown Rx Inhaler] Acetaminophen [Acetaminophen TAB] 500 mg PO Q6HR PRN #30 tablet 08/25/17 Unknown Rx Benzonatate [Tessalon Perles] 100 mg PO Q8HR PRN #30 capsule 08/25/17 Unknown Rx Chlorthalidone 25 mg PO QDAY #30 tablet 08/25/17 Unknown Rx Levofloxacin [Levaquin] 750 mg PO QDAY #5 tablet 08/25/17 Unknown Rx amLODIPine [Norvasc] 10 mg PO DAILY #30 tab 08/25/17 Unknown Rx ED Physical Exam - General Limitations: No Limitations General appearance: alert, in no apparent distress - Head Head exam: Present: atraumatic, normocephalic - Eye Eye exam: Present: normal appearance, PERRL, EOMI - ENT ENT exam: Present: mucous membranes moist - Neck Neck exam: Present: normal inspection, full ROM - Respiratory Respiratory exam: Present: normal lung sounds bilaterally. Absent: respiratory distress - Cardiovascular Cardiovascular Exam: Present: regular rate, normal rhythm. Absent: systolic murmur, diastolic murmur, rubs, gallop - GI/Abdominal GI/Abdominal exam: Present: soft, normal bowel sounds - Rectal Rectal exam: Present: deferred - Extremities Exam Extremities exam: Present: normal inspection, full ROM - Back Exam Back exam: Present: normal inspection - Neurological Exam Neurological exam: Present: alert, oriented X3, CN II-XII intact, normal gait - Psychiatric Psychiatric exam: Present: normal affect, normal mood - Skin Skin exam: Present: warm, dry, intact, normal color. Absent: rash ED Course Vital Signs 08/25/17 08/25/17 08/25/17 05:48 07:25 07:45 Temperature 98.4 F Pulse Rate 73 82 82 Respiratory 18 Rate Blood Pressure 161/95 171/108 Blood Pressure 171/108 [Left] O2 Sat by Pulse 97 98 Oximetry 08/25/17 08:11 Temperature Pulse Rate 74 Respiratory 18 Rate Blood Pressure Blood Pressure 169/98 [Left] O2 Sat by Pulse Oximetry ED Medical Decision Making - Medical Decision Making A/P: Acute bronchitis, request for refills on hypertension medicine 1-refill on amlodipine and chlorthalidone 2-follow up with primary care. Patient denies current chest pain palpitations shortness of breath dizziness headache blurry vision abdominal pain. asymptomatic HTN 3-will treat patient empirically with Levaquin as patient states he drinks on a daily basis, will cover pt empirically for atypical organisms seen in ETOH abusers with resp disease [email or web address]_ [email or web address] 4- I reinforced the importance of PMD follow up to the pt. He stated he would f/ u [facility]. Critical care attestation.: If time is entered above; I have spent that time in minutes in the direct care of this critically ill patient, excluding procedure time. ED Disposition Clinical Impression: Medication refill Acute bronchitis Qualifiers: Bronchitis organism: unspecified organism Qualified Code(s): J20.9 - Acute bronchitis, unspecified Disposition: DC-01 TO HOME OR SELFCARE Is pt being admited?: No Does the pt Need Aspirin: No Condition: Stable Instructions: Acute Bronchitis (ED), Hypertension (ED) Prescriptions: Acetaminophen [Acetaminophen TAB] 500 mg PO Q6HR PRN #30 tablet PRN Reason: Pain ALBUTEROL Inhaler [ProAir HFA Inhaler] 2 puff IH QID PRN #1 inhalation PRN Reason: Shortness Of Breath amLODIPine [Norvasc] 10 mg PO DAILY #30 tab Benzonatate [Tessalon Perles] 100 mg PO Q8HR PRN #30 capsule PRN Reason: Cough Chlorthalidone 25 mg PO QDAY #30 tablet Levofloxacin [Levaquin] 750 mg PO QDAY #5 tablet Referrals: [facility] [Outside] - 3-5 Days [facility] [Outside] - 3-5 Days [facility] [Provider Group] - 3-5 Days Forms: Work/School Release Form(ED) Time of Disposition: 07:13
--- NOTE | 2017-08-25 07:07 | XRay Report ---
FINAL REPORT PROCEDURE: XR CHEST ROUTINE 2V TECHNIQUE: PA and lateral chest radiographs were obtained. CPT 07842 HISTORY: cough worsening x5 days COMPARISON: 02/09/2017 FINDINGS: Heart: Normal. Mediastinum/Vessels: Normal. Lungs/Pleural space: Lungs are clear and expanded. There are no infiltrates, effusions or pneumothoraces.. Bony thorax: No acute osseous abnormality. Other: IMPRESSION: Normal heart and lungs..
[2017-08-25] MEDS ORDERED: NORVASC PO ONE (07:37)
[2017-08-25 08:11] VITALS: BP 169/98
== END 2017-08-25 08:11 | disposition home or self-care (01) ==
LOC: ED 05:35
DX: J20.9 Acute bronchitis, unspecified (principal); I10 Essential (primary) hypertension; K21.9 Gastro-esophageal reflux disease without esophagitis; F17.200 Nicotine dependence, unspecified, uncomplicated; Z88.8 Allergy status to other drugs, medicaments and biological substances
CPT/HCPCS: 71020; 99283

== ENCOUNTER 2017-09-16 18:46 | Emergency (ER) | payer OTHER ==
[2017-09-16 19:35] LABS: Basophils % (Auto) 0.6 % (0.0-1.8); Eosinophils % (Auto) 1.2 % (0.0-4.3); Hematocrit 42.9 % (35.5-45.6); Hemoglobin 14.8 gm/dl (11.8-15.2); Mean Corpuscular HGB Conc 35 % (32-34); Mean Corpuscular Hemoglobin 29 pg (28-32); Mean Corpuscular Volume 85 fl (84-94); Platelet Count 267 K/mm3 (140-440); Red Blood Count 5.05 M/mm3 (3.65-5.03); Red Cell Distribution Width 12.7 % (13.2-15.2); White Blood Count 5.7 K/mm3 (4.5-11.0)
[2017-09-16 19:40] LABS: Anion Gap 24 mmol/L; BUN/Creatinine Ratio 15; Blood Urea Nitrogen 16 mg/dL (9-20); Calcium 9.2 mg/dL (8.4-10.2); Carbon Dioxide 27 mmol/L (22-30); Chloride 89.7 mmol/L (98-107); Glucose 114 mg/dL (75-100); Sodium 138 mmol/L (137-145)
[2017-09-16 19:44] LABS: Potassium 2.8 mmol/L (3.6-5.0)
[2017-09-16 19:55] LABS: Urine Drugs of Abuse Note Disclamer
[2017-09-16 20:17] LABS: Bilirubin,Urine NEG (Negative); Blood,Urine SM (Negative); Ketones,Urine NEG (Negative); Leukocyte Esterase,Urine NEG (Negative); Nitrite,Urine NEG (Negative); Protein,Urine <15 mg/dL mg/dL (Negative); Urobilinogen,Urine < 2.0 mg/dL (<2.0); WBC,Urine < 1.0 /HPF (0.0-6.0)
[2017-09-16] MEDS ORDERED: K-DUR PO ONE (20:24)
[2017-09-16] MEDS ORDERED: ATIVAN IV ONE (20:28)
[2017-09-16] MEDS ORDERED: ZOFRAN IV ONE (20:28)
--- NOTE | 2017-09-16 20:44 | Emergency Department Report ---
ED Palpitations HPI - General Chief Complaint: Arrhythmia/Palpitations Stated Complaint: RAPID HEART RATE Time Seen by Provider: 09/16/17 20:23 Source: patient Mode of arrival: Ambulatory Limitations: No Limitations - History of Present Illness Initial Comments: 56 YO MALE WHO DRINKS 1 PINT OF ALCOHOL EVERYDAY WENT TO A BAR LAST NIGHT AND DRANK MUCH MORE THAN USUAL. AFTER EXCESSIVE DRINKING, HE BEGAN TO FEEL HIS HEART RACE AND BECOME IRREGULAR, BE BUT NO OTHER SYMPTOMS AT THE TIME. THIS AM 0500 HE WOKE UP WITH SHORTNESS OF BREATH AND LEFT ARM PAIN. MD Complaint: rapid heart beat, palpitations -: This morning Context: occured during rest Arrythmia History: other (NONE) Associated Symptoms: chest pain, shortness of breath. denies: nausea/vomiting Treatments Prior to Arrival: other (NONE) - Related Data Home Medications Medication Instructions Recorded Confirmed Last Taken Amlodipine Besylate [Norvasc] 5 mg PO DAILY 12/18/14 02/09/17 02/09/17 Allopurinol 02/10/17 Unknown Allopurinol [Zyloprim] 100 mg PO QDAY 02/10/17 02/10/17 Unknown Chlorthalidone [Chlorthalidone] 25 PO 02/10/17 Unknown Previous Rx's Medication Instructions Recorded Last Taken Type Cyclobenzaprine [Flexeril 10 MG 10 mg PO TID PRN #15 tablet 05/14/16 Unknown Rx TAB] Famotidine [Pepcid] 20 mg PO BID #20 tablet 02/10/17 Unknown Rx Metoprolol [Lopressor TAB] 50 mg PO DAILY #60 tablet 02/10/17 Unknown Rx Prednisone [predniSONE 10 mg 10 mg PO .TAPER #1 tab.ds.pk 02/10/17 Unknown Rx (6-Day Pack, 21 Tabs)] diphenhydrAMINE [Benadryl CAP] 25 mg PO Q8HR PRN #15 capsule 02/10/17 Unknown Rx Ciprofloxacin HCl [Ciprofloxacin 500 mg PO Q12H #20 tab 04/27/17 Unknown Rx TAB] Hydrochlorothiazide [HCTZ] 25 mg PO QDAY #30 tablet 04/27/17 Unknown Rx Metoprolol [Lopressor TAB] 50 mg PO BID #30 tablet 04/27/17 Unknown Rx amLODIPine [Norvasc] 10 mg PO DAILY #30 tab 04/27/17 Unknown Rx ALBUTEROL Inhaler [ProAir HFA 2 puff IH QID PRN #1 inhalation 08/25/17 Unknown Rx Inhaler] Acetaminophen [Acetaminophen TAB] 500 mg PO Q6HR PRN #30 tablet 08/25/17 Unknown Rx Benzonatate [Tessalon Perles] 100 mg PO Q8HR PRN #30 capsule 08/25/17 Unknown Rx Chlorthalidone 25 mg PO QDAY #30 tablet 08/25/17 Unknown Rx Levofloxacin [Levaquin] 750 mg PO QDAY #5 tablet 08/25/17 Unknown Rx amLODIPine [Norvasc] 10 mg PO DAILY #30 tab 08/25/17 Unknown Rx Potassium Chloride 10 meq PO QDAY #30 capsule.er 09/17/17 Unknown Rx Allergies Allergy/AdvReac Type Severity Reaction Status Date / Time lisinopril Allergy Severe Angioedema Verified 02/10/17 10:12 ED Review of Systems ROS: Stated complaint: RAPID HEART RATE Other details as noted in HPI Constitutional: denies: chills, fever Eyes: denies: eye pain, eye discharge, vision change ENT: denies: ear pain, throat pain Respiratory: shortness of breath. denies: cough, wheezing Cardiovascular: chest pain, palpitations Endocrine: no symptoms reported Gastrointestinal: denies: abdominal pain, nausea, diarrhea Genitourinary: denies: urgency, dysuria Musculoskeletal: denies: back pain, joint swelling, arthralgia Skin: denies: rash, lesions Neurological: denies: headache, weakness, paresthesias Psychiatric: denies: anxiety, depression Hematological/Lymphatic: denies: easy bleeding, easy bruising ED Past Medical Hx - Past Medical History Previous Medical History?: Yes Hx Hypertension: Yes Hx GERD: Yes Additional medical history: Alcohol dependence, GOUT - Surgical History Past Surgical History?: No - Family History Family history: hypertension - Social History Smoking Status: Former Smoker Substance Use Type: Alcohol, Prescribed - Medications Home Medications: Home Medications Medication Instructions Recorded Confirmed Last Taken Type Amlodipine Besylate [Norvasc] 5 mg PO DAILY 12/18/14 02/09/17 02/09/17 History Cyclobenzaprine [Flexeril 10 MG 10 mg PO TID PRN #15 tablet 05/14/16 02/09/17 Unknown Rx TAB] Allopurinol 02/10/17 Unknown History Allopurinol [Zyloprim] 100 mg PO QDAY 02/10/17 02/10/17 Unknown History Chlorthalidone [Chlorthalidone] 25 PO 02/10/17 Unknown History Famotidine [Pepcid] 20 mg PO BID #20 tablet 02/10/17 Unknown Rx Metoprolol [Lopressor TAB] 50 mg PO DAILY #60 tablet 02/10/17 Unknown Rx Prednisone [predniSONE 10 mg 10 mg PO .TAPER #1 tab.ds.pk 02/10/17 Unknown Rx (6-Day Pack, 21 Tabs)] diphenhydrAMINE [Benadryl CAP] 25 mg PO Q8HR PRN #15 capsule 02/10/17 Unknown Rx Ciprofloxacin HCl [Ciprofloxacin 500 mg PO Q12H #20 tab 04/27/17 Unknown Rx TAB] Hydrochlorothiazide [HCTZ] 25 mg PO QDAY #30 tablet 04/27/17 Unknown Rx Metoprolol [Lopressor TAB] 50 mg PO BID #30 tablet 04/27/17 Unknown Rx amLODIPine [Norvasc] 10 mg PO DAILY #30 tab 04/27/17 Unknown Rx ALBUTEROL Inhaler [ProAir HFA 2 puff IH QID PRN #1 inhalation 08/25/17 Unknown Rx Inhaler] Acetaminophen [Acetaminophen TAB] 500 mg PO Q6HR PRN #30 tablet 08/25/17 Unknown Rx Benzonatate [Tessalon Perles] 100 mg PO Q8HR PRN #30 capsule 08/25/17 Unknown Rx Chlorthalidone 25 mg PO QDAY #30 tablet 08/25/17 Unknown Rx Levofloxacin [Levaquin] 750 mg PO QDAY #5 tablet 08/25/17 Unknown Rx amLODIPine [Norvasc] 10 mg PO DAILY #30 tab 08/25/17 Unknown Rx Potassium Chloride 10 meq PO QDAY #30 capsule.er 09/17/17 Unknown Rx ED Physical Exam - General Limitations: No Limitations General appearance: alert, in no apparent distress - Head Head exam: Present: atraumatic, normocephalic - Eye Eye exam: Present: normal appearance, EOMI - ENT ENT exam: Present: mucous membranes moist - Neck Neck exam: Present: normal inspection - Respiratory Respiratory exam: Present: normal lung sounds bilaterally. Absent: respiratory distress, wheezes, rales - Cardiovascular Cardiovascular Exam: Present: normal rhythm, tachycardia. Absent: systolic murmur, diastolic murmur, rubs, gallop - GI/Abdominal GI/Abdominal exam: Present: soft, normal bowel sounds - Rectal Rectal exam: Present: deferred - Extremities Exam Extremities exam: Present: normal inspection, full ROM - Back Exam Back exam: Present: normal inspection - Neurological Exam Neurological exam: Present: alert, oriented X3, CN II-XII intact - Psychiatric Psychiatric exam: Present: normal affect, normal mood - Skin Skin exam: Present: warm, dry, intact, normal color. Absent: rash ED Course Vital Signs 09/16/17 09/16/17 09/16/17 18:57 20:52 21:00 Temperature 98.5 F Pulse Rate 112 H 94 H Respiratory 98 H 13 Rate Blood Pressure 161/103 O2 Sat by Pulse 98 99 99 Oximetry 09/16/17 09/16/17 09/16/17 21:30 22:00 22:30 Temperature Pulse Rate 104 H 106 H 100 H Respiratory 10 L 14 9 L Rate Blood Pressure 155/96 O2 Sat by Pulse 100 99 Oximetry 09/16/17 22:36 Temperature Pulse Rate Respiratory 12 Rate Blood Pressure O2 Sat by Pulse 96 Oximetry ED Medical Decision Making - Lab Data Result diagrams: 09/16/17 19:13 09/16/17 21:14 - EKG Data -: EKG Interpreted by Me EKG shows normal: axis, QRS complexes, ST-T waves Rate: tachycardia - Radiology Data Radiology results: report reviewed (CXR:CLEAR) Critical care attestation.: If time is entered above; I have spent that time in minutes in the direct care of this critically ill patient, excluding procedure time. ED Disposition Clinical Impression: Alcohol abuse, Hypokalemia Chest pain Qualifiers: Chest pain type: unspecified Qualified Code(s): R07.9 - Chest pain, unspecified Rhabdomyolysis Qualifiers: Rhabdomyolysis type: non-traumatic Qualified Code(s): M62.82 - Rhabdomyolysis Disposition: -09 OP ADMIT IP TO THIS HOSP Is pt being admited?: Yes Does the pt Need Aspirin: No Condition: Stable Instructions: Chest Pain (ED), Abuse of Alcohol (ED), Rhabdomyolysis (ED) Additional Instructions: PLEASE GET HELP FOR YOUR DRINKING , SEE YOUR DOCTOR IN TWO DAYS. ERTURN TO THE ER FOR ANY REASON Prescriptions: Potassium Chloride 10 meq PO QDAY #30 capsule.er Referrals: ARMANDO TERAN MD [Primary Care Provider] - 3-5 Days Time of Disposition: 01:06 (CASE REVIEWED WITH DR TRAVIS AND SHE WILL ADMIT HIM TO THE HOSPITAL)
[2017-09-16] MEDS ORDERED: KCL 10MEQ/100ML 10 MEQ/100 ML BAG IV SCH (21:00)
[2017-09-16 22:16] LABS: Creatine Kinase MB 10.3 ng/mL (0.0-4.0)
[2017-09-16 22:20] LABS: Creatine Kinase 1137 units/L (55-170); Potassium 3.5 mmol/L (3.6-5.0)
[2017-09-16] MEDS ORDERED: NACL 0.9% 1000 ML 2,000 ML IV ONE (23:22)
[2017-09-16] MEDS ORDERED: NACL 0.9% 1000 ML 1,000 ML IV ONE (23:23)
--- NOTE | 2017-09-16 23:32 | XRay Report ---
FINAL REPORT PROCEDURE: XR CHEST 1V AP TECHNIQUE: Chest radiograph anteroposterior view. CPT 34561 HISTORY: CHEST PAIN,SOB COMPARISON: 08/25/2017 FINDINGS: Heart: Normal. Mediastinum/Vessels: Normal. Lungs/Pleural space: Lungs are expanded. There are no infiltrates, effusions or pneumothoraces.. Bony thorax: No acute osseous abnormality. Life support devices: None. IMPRESSION: No acute cardiopulmonary abnormality.
[2017-09-17 02:07] VITALS: BP 147/86
== END 2017-09-17 02:08 | disposition home or self-care (01) ==
LOC: ED 18:46
DX: F10.20 Alcohol dependence, uncomplicated (principal); Y90.9 Presence of alcohol in blood, level not specified; E87.6 Hypokalemia; R07.9 Chest pain, unspecified; M62.82 Rhabdomyolysis; I10 Essential (primary) hypertension; K21.9 Gastro-esophageal reflux disease without esophagitis; M10.9 Gout, unspecified; Z88.8 Allergy status to other drugs, medicaments and biological substances; Z79.899 Other long term (current) drug therapy
CPT/HCPCS: 36415; 71010; 80048; 80307; 81001; 82550; 82553; 83880; 84132; 84439; 84443; 84484; 85025; 85379; 93005; 93010; 96365; 96375; 99285; G0480; J2060; J2405; J3480; J7030; 80320

== ENCOUNTER 2017-11-05 11:59 | Emergency (ER) | payer SELFPAY ==
[2017-11-05 12:48] VITALS: BP 150/83
--- NOTE | 2017-11-05 14:44 | Emergency Department Report ---
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 Patient placed the socks on both feet and then started noticing some itching. Patient states that the rash is worsening and creeping up and bilateral lower extremities and now involving the upper extremities as well. Patient denies any other symptoms besides itching) Rash Symptoms: Yes Itching, No Facial Swelling, No Tongue/Oral Swelling, No Breathing Difficulties, No Choking Sensation, No Wheezing/Dyspnea, No Peeling, No Blistering, No Fever ED Review of Systems ROS: Stated complaint: SKIN BREAK OUT Other details as noted in HPI Comment: All other systems reviewed and negative Musculoskeletal: joint swelling (H and has chronic pain in the bilateral great toes) ED Past Medical Hx - Past Medical History Hx Hypertension: Yes Hx GERD: Yes Additional medical history: Alcohol dependence, GOUT - Surgical History Past Surgical History?: No - Social History Smoking Status: Former Smoker Substance Use Type: Alcohol - Medications Home Medications: Home Medications Medication Instructions Recorded Confirmed Last Taken Type Amlodipine Besylate [Norvasc] 5 mg PO DAILY 12/18/14 02/09/17 02/09/17 History Cyclobenzaprine [Flexeril 10 MG 10 mg PO TID PRN #15 tablet 05/14/16 02/09/17 Unknown Rx TAB] Allopurinol 02/10/17 Unknown History Allopurinol [Zyloprim] 100 mg PO QDAY 02/10/17 02/10/17 Unknown History Chlorthalidone [Chlorthalidone] 25 PO 02/10/17 Unknown History Famotidine [Pepcid] 20 mg PO BID #20 tablet 02/10/17 Unknown Rx Metoprolol [Lopressor TAB] 50 mg PO DAILY #60 tablet 02/10/17 Unknown Rx Prednisone [predniSONE 10 mg 10 mg PO .TAPER #1 tab.ds.pk 02/10/17 Unknown Rx (6-Day Pack, 21 Tabs)] diphenhydrAMINE [Benadryl CAP] 25 mg PO Q8HR PRN #15 capsule 02/10/17 Unknown Rx Ciprofloxacin HCl [Ciprofloxacin 500 mg PO Q12H #20 tab 04/27/17 Unknown Rx TAB] Hydrochlorothiazide [HCTZ] 25 mg PO QDAY #30 tablet 04/27/17 Unknown Rx Metoprolol [Lopressor TAB] 50 mg PO BID #30 tablet 04/27/17 Unknown Rx amLODIPine [Norvasc] 10 mg PO DAILY #30 tab 04/27/17 Unknown Rx ALBUTEROL Inhaler [ProAir HFA 2 puff IH QID PRN #1 inhalation 08/25/17 Unknown Rx Inhaler] Acetaminophen [Acetaminophen TAB] 500 mg PO Q6HR PRN #30 tablet 08/25/17 Unknown Rx Benzonatate [Tessalon Perles] 100 mg PO Q8HR PRN #30 capsule 08/25/17 Unknown Rx Chlorthalidone 25 mg PO QDAY #30 tablet 08/25/17 Unknown Rx Levofloxacin [Levaquin] 750 mg PO QDAY #5 tablet 08/25/17 Unknown Rx amLODIPine [Norvasc] 10 mg PO DAILY #30 tab 08/25/17 Unknown Rx Potassium Chloride 10 meq PO QDAY #30 capsule.er 09/17/17 Unknown Rx Permethrin [Permethrin 1% lOTION] 120 ml TP ONCE #1 bottle 11/05/17 Unknown Rx Triamcinolone 0.1% [Kenalog 0.1% 1 applic TP TID #60 gram 11/05/17 Unknown Rx CREAM] diphenhydrAMINE [Benadryl CAP] 25 mg PO Q6HR 3 Days capsule 11/05/17 Unknown Rx predniSONE [Deltasone] 20 mg PO QDAY #5 tab 11/05/17 Unknown Rx Rash Exam - Exam General: Vital signs noted. No distress. Alert and acting appropriately. HEENT: No Periorbital Edema, No Conjuctival Injection, No Chemosis, No Perioral Edema, No Tongue Edema, No Uvular Edema, No Compromised Airway, No Drooling Lungs: Yes Good Air Exchange (Normal Breath Sounds), No Wheezes, No Ronchi, No Stridor, No Cough, No Labored Respirations, No Retractions, No Use of Accessory Muscles, No Other Abnormal Lung Sounds Heart: Yes Regular, No Murmur Skin: Yes Maculopapular Rash, Yes Erythema, Yes Encrustations (there is some scabbing associated with scratching), No Urticarial Rash, No Morbilliform rash, No Bulla(e), No Excoriations, No Weeping, No Tenderness, No Edema Other: Positive: Abdomen Normal, Neurologic Normal, Musculoskeletal Normal ED Course Vital Signs 11/05/17 12:41 Temperature 97.7 F Pulse Rate 74 Respiratory 16 Rate Blood Pressure 150/83 O2 Sat by Pulse 97 Oximetry ED Medical Decision Making - Medical Decision Making Patient will be treated for scabies were also given prescription strength steroid cream. Critical care attestation.: If time is entered above; I have spent that time in minutes in the direct care of this critically ill patient, excluding procedure time. ED Disposition Clinical Impression: Foot tendinitis, Scabies, Dermatitis Disposition: - TO HOME OR SELFCARE Is pt being admited?: No Does the pt Need Aspirin: No Condition: Stable Instructions: Acute Rash (ED), Scabies (ED) Prescriptions: diphenhydrAMINE [Benadryl CAP] 25 mg PO Q6HR 3 Days capsule Permethrin [Permethrin 1% lOTION] 120 ml TP ONCE #1 bottle predniSONE [Deltasone] 20 mg PO QDAY #5 tab Triamcinolone 0.1% [Kenalog 0.1% CREAM] 1 applic TP TID #60 gram Referrals: PRIMARY CARE,MD [Primary Care Provider] - 3-5 Days Forms: Work/School Release Form(ED)
== END 2017-11-05 15:01 | disposition home or self-care (01) ==
LOC: ED 11:59
DX: M77.52 Other enthesopathy of left foot and ankle (principal); M77.51 Other enthesopathy of right foot and ankle; L30.9 Dermatitis, unspecified; B86 Scabies; I10 Essential (primary) hypertension; K21.9 Gastro-esophageal reflux disease without esophagitis; Z87.891 Personal history of nicotine dependence
CPT/HCPCS: 99282

== ENCOUNTER 2017-11-20 09:42 | Emergency (ER) | payer SELFPAY ==
[2017-11-20 10:47] LABS: Basophils % (Auto) 0.5 % (0.0-1.8); Eosinophils # (Auto) 0.1 K/mm3 (0.0-0.4); Eosinophils % (Auto) 2.1 % (0.0-4.3); Hematocrit 43.6 % (35.5-45.6); Hemoglobin 14.7 gm/dl (11.8-15.2); Lymphocytes # (Auto) 1.8 K/mm3 (1.2-5.4); Lymphocytes % (Auto) 33.1 % (13.4-35.0); Mean Corpuscular HGB Conc 34 % (32-34); Mean Corpuscular Hemoglobin 29 pg (28-32); Mean Corpuscular Volume 85 fl (84-94); Monocytes # (Auto) 0.5 K/mm3 (0.0-0.8); Monocytes % (Auto) 8.2 % (0.0-7.3); Platelet Count 240 K/mm3 (140-440); Red Blood Count 5.11 M/mm3 (3.65-5.03)
[2017-11-20 10:56] LABS: BUN/Creatinine Ratio 11; Blood Urea Nitrogen 16 mg/dL (9-20); Hemolysis Index 23
--- NOTE | 2017-11-20 10:56 | XRay Report ---
CHEST 2 VIEWS INDICATION: Shortness of breath. COMPARISON: 09/16/2017. FINDINGS: PA and lateral chest radiographs demonstrate normal cardiomediastinal silhouette. Clear, slightly hyperexpanded lungs. Thoracic spondylosis. Right hemidiaphragm slightly elevated. CONCLUSION: No acute disease in the chest. Thank you for the opportunity to participate in this patient's care.
[2017-11-20] MEDS ORDERED: NORVASC PO ONE (13:10)
[2017-11-20] MEDS ORDERED: BACTRIM DS PO ONE (13:10)
[2017-11-20] MEDS ORDERED: BENADRYL PO ONE ×3 (13:10→15:00)
[2017-11-20] MEDS ORDERED: CLARITIN PO ONE (13:10)
[2017-11-20] MEDS ORDERED: HCTZ PO ONE (13:10)
--- NOTE | 2017-11-20 13:39 | Emergency Department Report ---
ED General Adult HPI - General Chief complaint: Dyspnea/Respdistress Stated complaint: SWELLING IN FEET/RASH Time Seen by Provider: 11/20/17 12:24 Source: patient Mode of arrival: Ambulatory Limitations: No Limitations - History of Present Illness Initial comments: 57-year-old male has no history of hypertension that presents with 4 weeks of extremity rash. Patient states that he got it after trying on socks from a passenger. 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 He came to the ER 3 weeks ago was started on triamcinolone, Benadryl, and permethrin cream. Patient states that this helped, but when the medications ran out the rash returned. The rash is itchy, but not painful. He has not seen on his palms or soles. It is started on his legs and spread up to his arms, torso, and face. Afebrile. No new medications. Patient also states than out of his blood pressure medication for the past month. 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 He has no positional shortness of breath. States that he mildly will get short of breath whenever he starts drinking heavily. Denies abdominal distention. No cough. Patient does not have a history of CHF. MD Complaint: rash, feet swelling - Related Data Home Medications Medication Instructions Recorded Confirmed Last Taken Amlodipine Besylate [Norvasc] 5 mg PO DAILY 12/18/14 02/09/17 02/09/17 Allopurinol 02/10/17 Unknown Allopurinol [Zyloprim] 100 mg PO QDAY 02/10/17 02/10/17 Unknown Chlorthalidone 25 PO 02/10/17 Unknown Previous Rx's Medication Instructions Recorded Last Taken Type Cyclobenzaprine [Flexeril 10 MG 10 mg PO TID PRN #15 tablet 05/14/16 Unknown Rx TAB] Famotidine [Pepcid] 20 mg PO BID #20 tablet 02/10/17 Unknown Rx Metoprolol [Lopressor TAB] 50 mg PO DAILY #60 tablet 02/10/17 Unknown Rx Prednisone [predniSONE 10 mg 10 mg PO .TAPER #1 tab.ds.pk 02/10/17 Unknown Rx (6-Day Pack, 21 Tabs)] diphenhydrAMINE [Benadryl CAP] 25 mg PO Q8HR PRN #15 capsule 02/10/17 Unknown Rx Ciprofloxacin HCl [Ciprofloxacin 500 mg PO Q12H #20 tab 04/27/17 Unknown Rx TAB] Hydrochlorothiazide [HCTZ] 25 mg PO QDAY #30 tablet 04/27/17 Unknown Rx Metoprolol [Lopressor TAB] 50 mg PO BID #30 tablet 04/27/17 Unknown Rx amLODIPine [Norvasc] 10 mg PO DAILY #30 tab 04/27/17 Unknown Rx ALBUTEROL Inhaler [ProAir HFA 2 puff IH QID PRN #1 inhalation 08/25/17 Unknown Rx Inhaler] Acetaminophen [Acetaminophen TAB] 500 mg PO Q6HR PRN #30 tablet 08/25/17 Unknown Rx Benzonatate [Tessalon Perles] 100 mg PO Q8HR PRN #30 capsule 08/25/17 Unknown Rx Chlorthalidone 25 mg PO QDAY #30 tablet 08/25/17 Unknown Rx Levofloxacin [Levaquin] 750 mg PO QDAY #5 tablet 08/25/17 Unknown Rx amLODIPine [Norvasc] 10 mg PO DAILY #30 tab 08/25/17 Unknown Rx Potassium Chloride 10 meq PO QDAY #30 capsule.er 09/17/17 Unknown Rx Permethrin [Permethrin 1% lOTION] 120 ml TP ONCE #1 bottle 11/05/17 Unknown Rx Triamcinolone 0.1% [Kenalog 0.1% 1 applic TP TID #60 gram 11/05/17 Unknown Rx CREAM] diphenhydrAMINE [Benadryl CAP] 25 mg PO Q6HR 3 Days capsule 11/05/17 Unknown Rx predniSONE [Deltasone] 20 mg PO QDAY #5 tab 11/05/17 Unknown Rx Cephalexin [Keflex] 500 mg PO Q12HR #16 cap 11/20/17 Unknown Rx Ciprofloxacin HCl [Ciprofloxacin 500 mg PO Q12H #56 tab 11/20/17 Unknown Rx TAB] Hydrochlorothiazide [HCTZ] 25 mg PO QDAY #30 tablet 11/20/17 Unknown Rx Prednisone [predniSONE 10 mg 10 mg PO .TAPER #1 tab.ds.pk 11/20/17 Unknown Rx (6-Day Pack, 21 Tabs)] amLODIPine [Norvasc] 10 mg PO DAILY #30 tab 11/20/17 Unknown Rx Allergies Allergy/AdvReac Type Severity Reaction Status Date / Time lisinopril Allergy Severe Angioedema Verified 02/10/17 10:12 ED Review of Systems ROS: Stated complaint: SWELLING IN FEET/RASH Other details as noted in HPI Constitutional: denies: chills, fever Eyes: denies: eye pain, eye discharge, vision change ENT: as per HPI Respiratory: shortness of breath Cardiovascular: edema. denies: chest pain, palpitations Endocrine: no symptoms reported Gastrointestinal: denies: abdominal pain, nausea, diarrhea Genitourinary: dysuria (intermittent x 2 wks. ) Musculoskeletal: denies: back pain, joint swelling, arthralgia Skin: rash, change in color, pruritus Neurological: denies: headache, weakness, paresthesias Psychiatric: denies: anxiety, depression Hematological/Lymphatic: denies: easy bruising ED Past Medical Hx - Past Medical History Hx Hypertension: Yes Hx GERD: Yes Additional medical history: Alcohol dependence, GOUT - Surgical History Past Surgical History?: No - Family History Family history: hypertension - Social History Smoking Status: Never Smoker Substance Use Type: Alcohol - Medications Home Medications: Home Medications Medication Instructions Recorded Confirmed Last Taken Type Amlodipine Besylate [Norvasc] 5 mg PO DAILY 12/18/14 02/09/17 02/09/17 History Cyclobenzaprine [Flexeril 10 MG 10 mg PO TID PRN #15 tablet 05/14/16 02/09/17 Unknown Rx TAB] Allopurinol 02/10/17 Unknown History Allopurinol [Zyloprim] 100 mg PO QDAY 02/10/17 02/10/17 Unknown History Chlorthalidone 25 PO 02/10/17 Unknown History Famotidine [Pepcid] 20 mg PO BID #20 tablet 02/10/17 Unknown Rx Metoprolol [Lopressor TAB] 50 mg PO DAILY #60 tablet 02/10/17 Unknown Rx Prednisone [predniSONE 10 mg 10 mg PO .TAPER #1 tab.ds.pk 02/10/17 Unknown Rx (6-Day Pack, 21 Tabs)] diphenhydrAMINE [Benadryl CAP] 25 mg PO Q8HR PRN #15 capsule 02/10/17 Unknown Rx Ciprofloxacin HCl [Ciprofloxacin 500 mg PO Q12H #20 tab 04/27/17 Unknown Rx TAB] Hydrochlorothiazide [HCTZ] 25 mg PO QDAY #30 tablet 04/27/17 Unknown Rx Metoprolol [Lopressor TAB] 50 mg PO BID #30 tablet 04/27/17 Unknown Rx amLODIPine [Norvasc] 10 mg PO DAILY #30 tab 04/27/17 Unknown Rx ALBUTEROL Inhaler [ProAir HFA 2 puff IH QID PRN #1 inhalation 08/25/17 Unknown Rx Inhaler] Acetaminophen [Acetaminophen TAB] 500 mg PO Q6HR PRN #30 tablet 08/25/17 Unknown Rx Benzonatate [Tessalon Perles] 100 mg PO Q8HR PRN #30 capsule 08/25/17 Unknown Rx Chlorthalidone 25 mg PO QDAY #30 tablet 08/25/17 Unknown Rx Levofloxacin [Levaquin] 750 mg PO QDAY #5 tablet 08/25/17 Unknown Rx amLODIPine [Norvasc] 10 mg PO DAILY #30 tab 08/25/17 Unknown Rx Potassium Chloride 10 meq PO QDAY #30 capsule.er 09/17/17 Unknown Rx Permethrin [Permethrin 1% lOTION] 120 ml TP ONCE #1 bottle 11/05/17 Unknown Rx Triamcinolone 0.1% [Kenalog 0.1% 1 applic TP TID #60 gram 11/05/17 Unknown Rx CREAM] diphenhydrAMINE [Benadryl CAP] 25 mg PO Q6HR 3 Days capsule 11/05/17 Unknown Rx predniSONE [Deltasone] 20 mg PO QDAY #5 tab 11/05/17 Unknown Rx Cephalexin [Keflex] 500 mg PO Q12HR #16 cap 11/20/17 Unknown Rx Ciprofloxacin HCl [Ciprofloxacin 500 mg PO Q12H #56 tab 11/20/17 Unknown Rx TAB] Hydrochlorothiazide [HCTZ] 25 mg PO QDAY #30 tablet 11/20/17 Unknown Rx Prednisone [predniSONE 10 mg 10 mg PO .TAPER #1 tab.ds.pk 11/20/17 Unknown Rx (6-Day Pack, 21 Tabs)] amLODIPine [Norvasc] 10 mg PO DAILY #30 tab 11/20/17 Unknown Rx ED Physical Exam - General Limitations: No Limitations General appearance: alert, in no apparent distress - Head Head exam: Present: atraumatic, normocephalic - Eye Eye exam: Present: normal appearance - ENT ENT exam: Present: mucous membranes moist - Neck Neck exam: Present: normal inspection - Respiratory Respiratory exam: Present: normal lung sounds bilaterally. Absent: respiratory distress - Cardiovascular Cardiovascular Exam: Present: regular rate, normal rhythm. Absent: systolic murmur, diastolic murmur, rubs, gallop, JVD - GI/Abdominal GI/Abdominal exam: Present: soft, normal bowel sounds - Extremities Exam Extremities exam: Present: pedal edema (bilateral 2+ pitting up to mid-tibia) - Neurological Exam Neurological exam: Present: alert, oriented X3 - Psychiatric Psychiatric exam: Present: normal affect, anxious - Skin Skin exam: Present: dry, intact, rash (blanching papular, scattered erythema on extremities/torso/face sparing palms/soles/orophayrnx. No rash on the web spaces of hands/toes), urticaria ED Course Vital Signs 11/20/17 11/20/17 11/20/17 10:19 12:28 12:31 Temperature 98.6 F Pulse Rate 83 88 Respiratory 16 15 Rate Blood Pressure 158/97 Blood Pressure 156/97 [Right] O2 Sat by Pulse 97 99 98 Oximetry 11/20/17 11/20/17 11/20/17 12:45 13:00 13:15 Temperature Pulse Rate 81 81 77 Respiratory 13 14 12 Rate Blood Pressure 151/75 142/92 158/98 Blood Pressure [Right] O2 Sat by Pulse 97 97 95 Oximetry 11/20/17 11/20/17 11/20/17 13:30 13:45 14:12 Temperature 98.0 F Pulse Rate 73 84 Respiratory 11 L 15 Rate Blood Pressure 158/88 158/88 126/94 Blood Pressure 158/88 [Right] O2 Sat by Pulse 96 96 Oximetry 11/20/17 11/20/17 11/20/17 14:15 14:31 14:34 Temperature Pulse Rate 73 77 73 Respiratory 19 14 Rate Blood Pressure 154/87 154/87 158/88 Blood Pressure [Right] O2 Sat by Pulse 94 96 Oximetry ED Medical Decision Making - Lab Data Result diagrams: 11/20/17 10:22 11/20/17 10:22 - EKG Data -: EKG Interpreted by Me EKG shows normal: sinus rhythm, axis, intervals, QRS complexes, ST-T waves Rate: normal - EKG Data Interpretation: normal EKG - Radiology Data Radiology results: image reviewed interpreted by me: no acute process - Medical Decision Making 57-year-old male who presents to the ER with multiple complaints. On exam, patient has diffuse blanching erythematous rash that is pruritic in nature. It appears to be urticarial in nature. I will status and scabies since it is sparing of his hands and feet. Patient will be started on a daily Zyrtec with Benadryl when necessary for treatment. I'll also start the patient on keflex since the patient's concerning to be a skin infection and he has poor follow- up. He has 2+ pitting edema on exam. No evidence of JVD no other evidence of CHF or acute renal failure. Patient does have COPD at baseline. I talked with the patient that his pedal edema is likely related to medication noncompliance versus venous stasis related to his job. He'll start when compression socks and I have given him a one-month refill of his amlodipine/hydrochlorothiazide. Patient also endorses a nonspecific dysuria. Denies sexual contact in the past 3 months. States he always needs antibiotic so clear this up. He was told last time that the dysuria was related to his prostate. I will start the patient on treatment for possible chronic prostatitis with cipro since pt is an alcoholic. - Differential Diagnosis uritcaria, cellulitis, erythema nodosum, scabies, anaphylaxis, SJS/TEN, CHF Critical care attestation.: If time is entered above; I have spent that time in minutes in the direct care of this critically ill patient, excluding procedure time. ED Disposition Clinical Impression: Pedal edema, Epididymitis, Cellulitis Disposition: [id number] TO HOME OR SELFCARE Is pt being admited?: No Does the pt Need Aspirin: No Condition: Stable Instructions: Epididymitis (ED) Additional Instructions: Start taking a daily melatonin to help sleep at night. Purchase compression socks and wear them at work tablet or leg swelling. Take medication as prescribed. Start taking 10 mg Zyrtec daily to help with itching. He can add 25 mg Benadryl every 6 hours as needed if the Zyrtec is not controlling the itching. Take your medications as prescribed. All the above medications can be purchased over the counter at a [facility]. Prescriptions: amLODIPine [Norvasc] 10 mg PO DAILY #30 tab Cephalexin [Keflex] 500 mg PO Q12HR #16 cap Ciprofloxacin HCl [Ciprofloxacin TAB] 500 mg PO Q12H #56 tab Hydrochlorothiazide [HCTZ] 25 mg PO QDAY #30 tablet Prednisone [predniSONE 10 mg (6-Day Pack, 21 Tabs)] 10 mg PO .TAPER #1 tab.ds.pk Referrals: PRIMARY CARE, [Primary Care Provider] - 3-5 Days Forms: STI Treatment and Prevention
[2017-11-20] MEDS ORDERED: NORVASC ONE (14:30)
[2017-11-20 15:37] VITALS: BP 142/88
== END 2017-11-20 15:27 | disposition home or self-care (01) ==
LOC: ED 09:42
DX: N45.1 Epididymitis (principal); R60.0 Localized edema; L03.90 Cellulitis, unspecified; I10 Essential (primary) hypertension; K21.9 Gastro-esophageal reflux disease without esophagitis; F10.129 Alcohol abuse with intoxication, unspecified; M10.9 Gout, unspecified; Z88.8 Allergy status to other drugs, medicaments and biological substances
CPT/HCPCS: 36415; 71046; 80048; 85025; 87086; 93005; 93010; 99284; Q0163

== ENCOUNTER 2017-12-06 07:45 | Emergency (ER) | payer OTHER ==
[2017-12-06 07:54] VITALS: BP 147/92
--- NOTE | 2017-12-06 10:30 | Emergency Department Report ---
ED Rash HPI - HPI Chief Complaint: Skin Rash Stated Complaint: RASH ON BODY Time Seen by Provider: 12/06/17 09:35 Duration: 3 month Location: Chest, Back, Abdomen, Upper Extremities, Lower Extremities Suspected Cause: Unknown Rash Symptoms: Yes Itching (all over), Yes Peeling, No Facial Swelling, No Tongue/Oral Swelling, No Breathing Difficulties, No Choking Sensation, No Wheezing/Dyspnea, No Blistering, No Fever, No Lightheaded, No Malaise, No Myalgias Severity: severe Other History: Patient reports that he has rash all over his body has been ongoing for 3 months he said it started on his right ankle from where he got a [place] gift and he said that somebody gave him P her socks are [place] and he thinks he got of ringworm but it spread all over. Patient reports that this is the third time here and patient has not followed up with previous instructions. He has been treated with steroids orally, steroid cream, antibiotic. His last visit was on 11/20/2017 where he was seen and treated with ciprofloxacin and prednisone oral Keflex. Prior to that he was treated with triamcinolone cream, permethrin and Benadryl. Patient did not follow-up with computer education professor because he said he does not have a computer education professor but he also did not follow up with primary care. Patient has a history of high blood pressure, GERD. He also has a history of alcohol dependence and gout. Denies pain. ED Review of Systems ROS: Stated complaint: RASH ON BODY Other details as noted in HPI Comment: All other systems reviewed and negative Constitutional: no symptoms reported Eyes: denies: eye pain, eye discharge ENT: denies: ear pain, throat pain, congestion Respiratory: no symptoms reported Cardiovascular: denies: chest pain, palpitations, dyspnea on exertion, orthopnea , edema, syncope, paroxysmal nocturnal dyspnea Gastrointestinal: denies: abdominal pain, nausea, vomiting, diarrhea, constipation, hematemesis, melena, hematochezia Musculoskeletal: denies: back pain, joint swelling, arthralgia, myalgia Skin: rash, pruritus Neurological: denies: headache, weakness, numbness, paresthesias, confusion, abnormal gait, vertigo ED Past Medical Hx - Past Medical History Previous Medical History?: Yes Hx Hypertension: Yes Hx GERD: Yes Additional medical history: Alcohol dependence, GOUT - Surgical History Past Surgical History?: No - Family History Family history: hypertension - Social History Smoking Status: Former Smoker Substance Use Type: Alcohol - Medications Home Medications: Home Medications Medication Instructions Recorded Confirmed Last Taken Type Amlodipine Besylate [Norvasc] 5 mg PO DAILY 12/18/14 02/09/17 02/09/17 History Cyclobenzaprine [Flexeril 10 MG 10 mg PO TID PRN #15 tablet 05/14/16 02/09/17 Unknown Rx TAB] Allopurinol 02/10/17 Unknown History Allopurinol [Zyloprim] 100 mg PO QDAY 02/10/17 02/10/17 Unknown History Chlorthalidone 25 PO 02/10/17 Unknown History Famotidine [Pepcid] 20 mg PO BID #20 tablet 02/10/17 Unknown Rx Metoprolol [Lopressor TAB] 50 mg PO DAILY #60 tablet 02/10/17 Unknown Rx Prednisone [predniSONE 10 mg 10 mg PO .TAPER #1 tab.ds.pk 02/10/17 Unknown Rx (6-Day Pack, 21 Tabs)] diphenhydrAMINE [Benadryl CAP] 25 mg PO Q8HR PRN #15 capsule 02/10/17 Unknown Rx Ciprofloxacin HCl [Ciprofloxacin 500 mg PO Q12H #20 tab 04/27/17 Unknown Rx TAB] Hydrochlorothiazide [HCTZ] 25 mg PO QDAY #30 tablet 04/27/17 Unknown Rx Metoprolol [Lopressor TAB] 50 mg PO BID #30 tablet 04/27/17 Unknown Rx amLODIPine [Norvasc] 10 mg PO DAILY #30 tab 04/27/17 Unknown Rx ALBUTEROL Inhaler [ProAir HFA 2 puff IH QID PRN #1 inhalation 08/25/17 Unknown Rx Inhaler] Acetaminophen [Acetaminophen TAB] 500 mg PO Q6HR PRN #30 tablet 08/25/17 Unknown Rx Benzonatate [Tessalon Perles] 100 mg PO Q8HR PRN #30 capsule 08/25/17 Unknown Rx Chlorthalidone 25 mg PO QDAY #30 tablet 08/25/17 Unknown Rx Levofloxacin [Levaquin] 750 mg PO QDAY #5 tablet 08/25/17 Unknown Rx amLODIPine [Norvasc] 10 mg PO DAILY #30 tab 08/25/17 Unknown Rx Potassium Chloride 10 meq PO QDAY #30 capsule.er 09/17/17 Unknown Rx Permethrin [Permethrin 1% lOTION] 120 ml TP ONCE #1 bottle 11/05/17 Unknown Rx Triamcinolone 0.1% [Kenalog 0.1% 1 applic TP TID #60 gram 11/05/17 Unknown Rx CREAM] diphenhydrAMINE [Benadryl CAP] 25 mg PO Q6HR 3 Days capsule 11/05/17 Unknown Rx Cephalexin [Keflex] 500 mg PO Q12HR #16 cap 11/20/17 Unknown Rx Ciprofloxacin HCl [Ciprofloxacin 500 mg PO Q12H #56 tab 11/20/17 Unknown Rx TAB] Hydrochlorothiazide [HCTZ] 25 mg PO QDAY #30 tablet 11/20/17 Unknown Rx Prednisone [predniSONE 10 mg 10 mg PO .TAPER #1 tab.ds.pk 11/20/17 Unknown Rx (6-Day Pack, 21 Tabs)] amLODIPine [Norvasc] 10 mg PO DAILY #30 tab 11/20/17 Unknown Rx Fluconazole [Diflucan TAB] 150 mg PO QDAY 3 Days #3 tablet 12/06/17 Unknown Rx Ketoconazole 2% [Nizoral] 1 applicatio TP BID 2 Days #1 tube 12/06/17 Unknown Rx Sulfamethoxazole/Trimethoprim 1 each PO BID 10 Days #20 tablet 12/06/17 Unknown Rx [Bactrim DS TAB] hydrOXYzine HCL [Atarax] 25 mg PO Q6HR PRN #20 tablet 12/06/17 Unknown Rx predniSONE [Deltasone] 20 mg PO BID 5 Days #10 tab 12/06/17 Unknown Rx Rash Exam - Exam General: Vital signs noted. No distress. Alert and acting appropriately. This is a 57-year-old male well-nourished well-developed in no acute distress and nontoxic in appearance. HEENT: No Periorbital Edema, No Conjuctival Injection, No Chemosis, No Perioral Edema, No Tongue Edema, No Uvular Edema, No Compromised Airway, No Drooling Lungs: Yes Good Air Exchange, No Wheezes, No Ronchi, No Stridor, No Cough, No Labored Respirations, No Retractions, No Use of Accessory Muscles, No Other Abnormal Lung Sounds Heart: Yes Regular (tachycardia at 104), No Murmur Skin: Yes Excoriations, Yes Erythema (scattered to rash sites that some areas), Yes Other (patient with generalized rash that appears to be a fungal infection with superimposed bacterial infection. This is been ongoing. Nontender to palpate. Some area with scaly in, some area with well-demarcated areas with clearing to Center with erythema surrounding.), No Urticarial Rash, No Maculopapular Rash, No Morbilliform rash, No Bulla(e), No Weeping, No Tenderness , No Edema, No Encrustations Other: Positive: Abdomen Normal (nontender to palpate in all quadrants and normal bowel sounds), Neurologic Normal (alert and oriented 3, GCS of 15. Reflexes are normal.), Musculoskeletal Normal (no clubbing, cyanosis or edema. +2 pulses to all extremities and no neurovascular compromise. +5 movement in all extremities) ED Course Vital Signs 12/06/17 07:48 Temperature 98.8 F Pulse Rate 104 H Respiratory 20 Rate Blood Pressure 147/92 O2 Sat by Pulse 97 Oximetry Vital Signs 12/06/17 12/06/17 07:48 12:00 Temperature 98.8 F Pulse Rate 104 H 98 H Respiratory 20 Rate Blood Pressure 147/92 O2 Sat by Pulse 97 Oximetry - Reevaluation(s) Reevaluation #1: 12/06/17 12:00 Patient given Benadryl 50 mg IM and Decadron 10 mg IM and he voiced moderate relief of itching. ED Medical Decision Making - Medical Decision Making ED course: She is here with this been ongoing for 3 months. He said that he contact rash from socks that he was given. He reports that rash started off on his ankle and spread over 3 months. Patient appears to have a fungal rash that has some bacterial infection at site. He was given an previous medication and he said the only medication that helped was the triamcinolone cream but he didn' t have a lot of it. He is also taken prednisone. I discussed the patient his diagnosis and treatment plan. He was given Benadryl 50 mg IM and Decadron 10 mg IM and he voiced relief of itching. Patient discharged home a prescription for Atarax, Bactrim DS, Diflucan, antifungal cream and prednisone. I will give patient a short dose of prednisone orally. I gave him instructions on following up at the outside [facility] for primary care and also for rash and dermatology. Critical care attestation.: If time is entered above; I have spent that time in minutes in the direct care of this critically ill patient, excluding procedure time. ED Disposition Clinical Impression: Fungal skin infection, Bacterial infection of skin, Rash and nonspecific skin eruption, Pruritus Disposition: [id number] TO HOME OR SELFCARE Is pt being admited?: No Does the pt Need Aspirin: No Condition: Stable Instructions: Antifungals (On the skin), Tinea Corporis (ED), Itchy Skin (ED), Cellulitis (ED) Additional Instructions: Please follow up with computer education professor as instructed Follow-up with primary care physician to manage her chronic GERD and high blood pressure Take Medication as prescribed Increased her fluid intake Prescriptions: Fluconazole [Diflucan TAB] 150 mg PO QDAY 3 Days #3 tablet hydrOXYzine HCL [Atarax] 25 mg PO Q6HR PRN #20 tablet PRN Reason: Itching Ketoconazole 2% [Nizoral] 1 applicatio TP BID 2 Days #1 tube predniSONE [Deltasone] 20 mg PO BID 5 Days #10 tab Sulfamethoxazole/Trimethoprim [Bactrim DS TAB] 1 each PO BID 10 Days #20 tablet Referrals: [facility] [Outside] - 2-3 Days SHIV OLIVERA MD [Staff Physician] - 12/08/17 Forms: Work/School Release Form(ED)
[2017-12-06] MEDS ORDERED: BENADRYL IM ONE (10:33)
[2017-12-06] MEDS ORDERED: DECADRON IM ONE (10:33)
== END 2017-12-06 12:21 | disposition home or self-care (01) ==
LOC: ED 07:45
DX: L29.9 Pruritus, unspecified (principal); I10 Essential (primary) hypertension; K21.9 Gastro-esophageal reflux disease without esophagitis; M10.9 Gout, unspecified; Z87.891 Personal history of nicotine dependence
CPT/HCPCS: 96372; 99282; J1100; J1200

== ENCOUNTER 2017-12-31 14:45 | Emergency (ER) | payer SELFPAY ==
[2017-12-31 15:06] VITALS: BP 150/96
[2017-12-31] MEDS ORDERED: MOTRIN PO ONE (18:26)
--- NOTE | 2017-12-31 18:26 | Emergency Department Report ---
HPI - General Chief Complaint: Dental/Oral Time Seen by Provider: 12/31/17 18:25 - HPI HPI: Patient reports that he has a loose upper right tooth that's been bothering him. Reports pain is 8 out of 10 and achy. Worse with talking and eating. Denies any fever or chills. Denies any nasal congestion or sore throat. Denies any shortness of breath or chest pain. Patient with a history of GERD and hypertension. He said he took [id number] medication but is not working and he does not have access to a dentist. ED Past Medical Hx - Past Medical History Previous Medical History?: Yes Hx Hypertension: Yes Hx GERD: Yes Additional medical history: Alcohol dependence, GOUT - Surgical History Past Surgical History?: No - Family History Family history: hypertension - Social History Smoking Status: Never Smoker Substance Use Type: Alcohol - Medications Home Medications: Home Medications Medication Instructions Recorded Confirmed Last Taken Type Amlodipine Besylate [Norvasc] 5 mg PO DAILY 12/18/14 02/09/17 02/09/17 History Cyclobenzaprine [Flexeril 10 MG 10 mg PO TID PRN #15 tablet 05/14/16 02/09/17 Unknown Rx TAB] Allopurinol 02/10/17 Unknown History Allopurinol [Zyloprim] 100 mg PO QDAY 02/10/17 02/10/17 Unknown History Chlorthalidone 25 PO 02/10/17 Unknown History Famotidine [Pepcid] 20 mg PO BID #20 tablet 02/10/17 Unknown Rx Metoprolol [Lopressor TAB] 50 mg PO DAILY #60 tablet 02/10/17 Unknown Rx Prednisone [predniSONE 10 mg 10 mg PO .TAPER #1 tab.ds.pk 02/10/17 Unknown Rx (6-Day Pack, 21 Tabs)] diphenhydrAMINE [Benadryl CAP] 25 mg PO Q8HR PRN #15 capsule 02/10/17 Unknown Rx Ciprofloxacin HCl [Ciprofloxacin 500 mg PO Q12H #20 tab 04/27/17 Unknown Rx TAB] Hydrochlorothiazide [HCTZ] 25 mg PO QDAY #30 tablet 04/27/17 Unknown Rx Metoprolol [Lopressor TAB] 50 mg PO BID #30 tablet 04/27/17 Unknown Rx amLODIPine [Norvasc] 10 mg PO DAILY #30 tab 04/27/17 Unknown Rx ALBUTEROL Inhaler [ProAir HFA 2 puff IH QID PRN #1 inhalation 08/25/17 Unknown Rx Inhaler] Acetaminophen [Acetaminophen TAB] 500 mg PO Q6HR PRN #30 tablet 08/25/17 Unknown Rx Benzonatate [Tessalon Perles] 100 mg PO Q8HR PRN #30 capsule 08/25/17 Unknown Rx Chlorthalidone 25 mg PO QDAY #30 tablet 08/25/17 Unknown Rx Levofloxacin [Levaquin] 750 mg PO QDAY #5 tablet 08/25/17 Unknown Rx amLODIPine [Norvasc] 10 mg PO DAILY #30 tab 08/25/17 Unknown Rx Potassium Chloride 10 meq PO QDAY #30 capsule.er 09/17/17 Unknown Rx Permethrin [Permethrin 1% lOTION] 120 ml TP ONCE #1 bottle 11/05/17 Unknown Rx Triamcinolone 0.1% [Kenalog 0.1% 1 applic TP TID #60 gram 11/05/17 Unknown Rx CREAM] diphenhydrAMINE [Benadryl CAP] 25 mg PO Q6HR 3 Days capsule 11/05/17 Unknown Rx Cephalexin [Keflex] 500 mg PO Q12HR #16 cap 11/20/17 Unknown Rx Ciprofloxacin HCl [Ciprofloxacin 500 mg PO Q12H #56 tab 11/20/17 Unknown Rx TAB] Hydrochlorothiazide [HCTZ] 25 mg PO QDAY #30 tablet 11/20/17 Unknown Rx Prednisone [predniSONE 10 mg 10 mg PO .TAPER #1 tab.ds.pk 11/20/17 Unknown Rx (6-Day Pack, 21 Tabs)] amLODIPine [Norvasc] 10 mg PO DAILY #30 tab 11/20/17 Unknown Rx Fluconazole [Diflucan TAB] 150 mg PO QDAY 3 Days #3 tablet 12/06/17 Unknown Rx Ketoconazole 2% [Nizoral] 1 applicatio TP BID 2 Days #1 tube 12/06/17 Unknown Rx Sulfamethoxazole/Trimethoprim 1 each PO BID 10 Days #20 tablet 12/06/17 Unknown Rx [Bactrim DS TAB] hydrOXYzine HCL [Atarax] 25 mg PO Q6HR PRN #20 tablet 12/06/17 Unknown Rx predniSONE [Deltasone] 20 mg PO BID 5 Days #10 tab 03/17/18 Unknown Rx Acetaminophen/Codeine [Tylenol 1 tab PO Q6H PRN #12 tab 12/31/17 Unknown Rx /Codeine # 3 tab] Ibuprofen [Motrin] 600 mg PO Q8H PRN #15 tablet 12/31/17 Unknown Rx Penicillin V Potassium 500 mg PO Q8H 10 Days #30 tablet 12/31/17 Unknown Rx ED Review of Systems ROS: Stated complaint: TOOTHACHE Other details as noted in HPI Comment: All other systems reviewed and negative Constitutional: no symptoms reported ENT: dental pain. denies: ear pain, throat pain, epistaxis, congestion Respiratory: no symptoms reported Cardiovascular: denies: chest pain, palpitations, dyspnea on exertion, edema, syncope, paroxysmal nocturnal dyspnea Gastrointestinal: denies: abdominal pain, nausea, vomiting Musculoskeletal: denies: back pain, arthralgia Skin: denies: rash Neurological: denies: headache, numbness, paresthesias, confusion, abnormal gait , vertigo Physical Exam - Physical Exam Vital Signs: Vital Signs 12/31/17 15:03 Temperature 98.0 F Pulse Rate 74 Respiratory 16 Rate Blood Pressure 150/96 O2 Sat by Pulse 96 Oximetry General: This is a 57-year-old female well-nourished well-developed in no acute distress. Physical Exam: Head: Normocephalic, atraumatic, no abrasion, no bruising and no contusion. Eyes: Biateral pupils equal and reactive to light, bilateral EOM intact.. Bilateral conjunctival and sclera without injection, normal accommodation. No nystagmus Mouth: Mucosa moist, no pharyngeal exudate or erythema. No peritonsillar abscesses. Uvula is midline and oral airways patent. Tooth #5 loose with tenderness to palpate around gumline. No induration or cellulitis noted. Patient with dental caries and mild gingivitis. Tongue is normal Ears: Bilateral TMs pearly mejia Bilateral EAC without any redness swelling or drainage. No mastoid bone tenderness Nose: Bilateral nasal mucosa normal ,Maxillary and frontal sinuses non-tender to palpate. Neck: Supple, No Cervical adenopathy, full range of motion and no C-spine tenderness. No swelling or tracheal deviation normal reflexes Cardiovascular: S1, S2. Regular rate and rhythm. No murmur. Capillary refill is less then 3 seconds. Lungs: Clear to auscultate bilaterally. No rhonchi, wheezes or rales. No chest wall tenderness. No chest contusion. No bruising to chest. Extremities: No clubbing, cyanosis or edema. +2 pulses. No neurovascular compromise Skin: Clean, dry and intact. No rash or lesions. Psych: Normal mood and behavior ED Course Vital Signs 12/31/17 15:03 Temperature 98.0 F Pulse Rate 74 Respiratory 16 Rate Blood Pressure 150/96 O2 Sat by Pulse 96 Oximetry - Reevaluation(s) Reevaluation #1: 12/31/17 18:47 She given Motrin 800 mg nightly emergency room for pain. ED Medical Decision Making - Medical Decision Making ED course: Pt with toothache and found to have gingivitis, dental caries. He is given Motrin 800 mg emergency room for pain and discharged home in stable condition with prescription for penicillin V and Motrin, Tylenol 3 and to follow -up at [facility]. I discussed the patient that he needs to call tomorrow and schedule an appointment and let them know that he was started on antibiotic and emergency room. He voices understanding to discharge instruction treatment plan and need to follow up with dentist. Critical care attestation.: If time is entered above; I have spent that time in minutes in the direct care of this critically ill patient, excluding procedure time. ED Disposition Clinical Impression: Tooth ache, Mild gingivitis, Dental caries Disposition: - TO HOME OR SELFCARE Is pt being admited?: No Does the pt Need Aspirin: No Condition: Stable Instructions: Gingivitis (ED), Dental Caries (ED), Toothache (ED) Additional Instructions: Please take Motrin and Tylenol 3 for toothache but please do not drive or operate heavy machinery while taking Tylenol No. 3 as this medication causes drowsiness [facility] at scheduled appointment for treatment. Take antibiotic as prescribed Prescriptions: Acetaminophen/Codeine [Tylenol /Codeine # 3 tab] 1 tab PO Q6H PRN #12 tab PRN Reason: moderate to severe pain Ibuprofen [Motrin] 600 mg PO Q8H PRN #15 tablet PRN Reason: Pain Penicillin V Potassium 500 mg PO Q8H 10 Days #30 tablet Referrals: [facility] [Outside] - 3-5 Days [facility] [Outside] - 3-5 Days [facility] [Outside] - 2-3 Days Forms: Work/School Release Form(ED)
== END 2017-12-31 19:03 | disposition home or self-care (01) ==
LOC: ED 14:45
DX: K05.10 Chronic gingivitis, plaque induced (principal); K02.9 Dental caries, unspecified; I10 Essential (primary) hypertension; K21.9 Gastro-esophageal reflux disease without esophagitis; Z88.8 Allergy status to other drugs, medicaments and biological substances
CPT/HCPCS: 99282

== ENCOUNTER 2018-04-07 03:40 | Emergency (ER) | payer SELFPAY ==
[2018-04-07 06:07] LABS: Basophils % (Auto) 0.5 % (0.0-1.8); Eosinophils # (Auto) 0.2 K/mm3 (0.0-0.4); Eosinophils % (Auto) 4.6 % (0.0-4.3); Hematocrit 45.3 % (35.5-45.6); Hemoglobin 15.4 gm/dl (11.8-15.2); Lymphocytes # (Auto) 1.4 K/mm3 (1.2-5.4); Lymphocytes % (Auto) 31.9 % (13.4-35.0); Mean Corpuscular HGB Conc 34 % (32-34); Mean Corpuscular Hemoglobin 29 pg (28-32); Mean Corpuscular Volume 86 fl (84-94); Monocytes # (Auto) 0.4 K/mm3 (0.0-0.8); Monocytes % (Auto) 8.7 % (0.0-7.3); Platelet Count 221 K/mm3 (140-440); Red Blood Count 5.27 M/mm3 (3.65-5.03); Red Cell Distribution Width 12.9 % (13.2-15.2)
[2018-04-07 06:14] LABS: Alanine Aminotransferase 20 units/L (7-56); Albumin 4.7 g/dL (3.9-5); BUN/Creatinine Ratio 12; Blood Urea Nitrogen 11 mg/dL (9-20); Calcium 9.8 mg/dL (8.4-10.2); Hemolysis Index 7
--- NOTE | 2018-04-07 14:52 | Emergency Department Report ---
ED General Adult HPI - General Chief complaint: Arrhythmia/Palpitations Stated complaint: HIGH BP Time Seen by Provider: 04/07/18 13:47 Source: patient Mode of arrival: Ambulatory Limitations: No Limitations - History of Present Illness Initial comments: Chief complaint high blood pressure 57-year-old man presents with initial complaint of high blood pressure, but has several additional secondary complaint for evaluation in emergency department, including recent alcohol binge of 2 days starting 4 days ago, after 2 months of sobriety, with abstinence for the past 2 days, but with lightheadedness and a sense of swimminess with head movement for the 2 days since, which was his proximate cause for coming for ED evaluation. He has a significant history of past alcohol abuse, was sober for the preceding 2 months, until he lost his job over the weekend, and relapsed drinking 2/5 of alcohol during this most recent binge. He has not had any abdominal pain, no nausea or vomiting, but has not been eating or drinking very much since he stopped drinking. He has no focal neurologic deficits, but he had a sense of pain running down his entire right side of his body this morning on waking. This was vague, mild, 2-3 out of 10 at most, aggravated by movement, and felt as a dull ache as well as some sharp exacerbation with movement. Finally, patient complains of a chronic skin rash of extremities, including left forearm, and both anterior legs near the ankles, which is been unresponsive to medications given at prior emergency department here. He believes he has an infection, saw a naturopathic pysician, who told him that he had a parasite, and put him on a parasite cleansing detoxification diet for the past 10 days, and this did not help either. He still has sense of soreness when he moves, but is comfortable at rest in emergency Department, vital signs show mild elevation of blood pressure at 169/ 89. Repeat showed an elevation transiently to 195/111, but with repositioning the blood pressure cuff, and change in her forearms, registered again at 159/88. Past medical history is significant for alcohol abuse, and hypertension, and patient has been noncompliant with medications for the past several months, reporting that he had gone on a healthy diet, and platelet his blood pressure was normal, and stopped taking medication on his own. He was on multiple medications, including unknown diuretic, and amlodipine. 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 - Related Data Home Medications Medication Instructions Recorded Confirmed Last Taken Amlodipine Besylate [Norvasc] 5 mg PO DAILY 12/18/14 02/09/17 02/09/17 Allopurinol 02/10/17 Unknown Allopurinol [Zyloprim] 100 mg PO QDAY 02/10/17 02/10/17 Unknown Chlorthalidone 25 PO 02/10/17 Unknown Previous Rx's Medication Instructions Recorded Last Taken Type Cyclobenzaprine [Flexeril 10 MG 10 mg PO TID PRN #15 tablet 05/14/16 Unknown Rx TAB] Famotidine [Pepcid] 20 mg PO BID #20 tablet 02/10/17 Unknown Rx Metoprolol [Lopressor TAB] 50 mg PO DAILY #60 tablet 02/10/17 Unknown Rx Prednisone [predniSONE 10 mg 10 mg PO .TAPER #1 tab.ds.pk 02/10/17 Unknown Rx (6-Day Pack, 21 Tabs)] diphenhydrAMINE [Benadryl CAP] 25 mg PO Q8HR PRN #15 capsule 02/10/17 Unknown Rx Ciprofloxacin HCl [Ciprofloxacin 500 mg PO Q12H #20 tab 04/27/17 Unknown Rx TAB] Hydrochlorothiazide [HCTZ] 25 mg PO QDAY #30 tablet 04/27/17 Unknown Rx Metoprolol [Lopressor TAB] 50 mg PO BID #30 tablet 04/27/17 Unknown Rx ALBUTEROL Inhaler [ProAir HFA 2 puff IH QID PRN #1 inhalation 08/25/17 Unknown Rx Inhaler] Acetaminophen [Acetaminophen TAB] 500 mg PO Q6HR PRN #30 tablet 08/25/17 Unknown Rx Benzonatate [Tessalon Perles] 100 mg PO Q8HR PRN #30 capsule 08/25/17 Unknown Rx Chlorthalidone 25 mg PO QDAY #30 tablet 08/25/17 Unknown Rx Levofloxacin [Levaquin] 750 mg PO QDAY #5 tablet 08/25/17 Unknown Rx amLODIPine [Norvasc] 10 mg PO DAILY #30 tab 08/25/17 Unknown Rx Potassium Chloride 10 meq PO QDAY #30 capsule.er 09/17/17 Unknown Rx Permethrin [Permethrin 1% lOTION] 120 ml TP ONCE #1 bottle 02/14/18 Unknown Rx diphenhydrAMINE [Benadryl CAP] 25 mg PO Q6HR 3 Days capsule 11/05/17 Unknown Rx Cephalexin [Keflex] 500 mg PO Q12HR #16 cap 11/20/17 Unknown Rx Ciprofloxacin HCl [Ciprofloxacin 500 mg PO Q12H #56 tab 11/20/17 Unknown Rx TAB] Hydrochlorothiazide [HCTZ] 25 mg PO QDAY #30 tablet 11/20/17 Unknown Rx Prednisone [predniSONE 10 mg 10 mg PO .TAPER #1 tab.ds.pk 11/20/17 Unknown Rx (6-Day Pack, 21 Tabs)] amLODIPine [Norvasc] 10 mg PO DAILY #30 tab 11/20/17 Unknown Rx Fluconazole [Diflucan TAB] 150 mg PO QDAY 3 Days #3 tablet 12/06/17 Unknown Rx Ketoconazole 2% [Nizoral] 1 applicatio TP BID 2 Days #1 tube 12/06/17 Unknown Rx Sulfamethoxazole/Trimethoprim 1 each PO BID 10 Days #20 tablet 12/06/17 Unknown Rx [Bactrim DS TAB] hydrOXYzine HCL [Atarax] 25 mg PO Q6HR PRN #20 tablet 12/06/17 Unknown Rx predniSONE [Deltasone] 20 mg PO BID 5 Days #10 tab 12/06/17 Unknown Rx Acetaminophen/Codeine [Tylenol 1 tab PO Q6H PRN #12 tab 12/31/17 Unknown Rx /Codeine # 3 tab] Ibuprofen [Motrin] 600 mg PO Q8H PRN #15 tablet 12/31/17 Unknown Rx Penicillin V Potassium 500 mg PO Q8H 10 Days #30 tablet 12/31/17 Unknown Rx Allopurinol [Zyloprim] 100 mg PO QDAY #30 tablet 04/07/18 Unknown Rx Triamcinolone 0.1% [Kenalog 0.1% 1 applic TP TID #60 gram 04/07/18 Unknown Rx CREAM] amLODIPine [Norvasc] 10 mg PO DAILY #30 tab 04/07/18 Unknown Rx Allergies Allergy/AdvReac Type Severity Reaction Status Date / Time lisinopril Allergy Severe Angioedema Verified 02/10/17 10:12 ED Review of Systems ROS: Stated complaint: HIGH BP Other details as noted in HPI Constitutional: denies: chills, fever Eyes: vision change (blurriness). denies: eye pain ENT: denies: throat pain Respiratory: denies: cough, shortness of breath, SOB with exertion, wheezing Cardiovascular: palpitations. denies: chest pain Endocrine: denies: excessive sweating, flushing, intolerance to cold, intolerance to heat, increased hunger, increased thirst, increased urine Gastrointestinal: denies: abdominal pain, nausea, vomiting, hematemesis, melena Genitourinary: denies: urgency, dysuria Musculoskeletal: denies: back pain Skin: rash (chronic, forearm, ankles) Neurological: paresthesias, other (swimminess). denies: headache, weakness Hematological/Lymphatic: as per HPI ED Past Medical Hx - Past Medical History Hx Hypertension: Yes Hx GERD: Yes Additional medical history: Alcohol dependence, GOUT - Social History Smoking Status: Current Every Day Smoker Substance Use Type: None - Medications Home Medications: Home Medications Medication Instructions Recorded Confirmed Last Taken Type Amlodipine Besylate [Norvasc] 5 mg PO DAILY 12/18/14 02/09/17 02/09/17 History Cyclobenzaprine [Flexeril 10 MG 10 mg PO TID PRN #15 tablet 05/14/16 02/09/17 Unknown Rx TAB] Allopurinol 02/10/17 Unknown History Allopurinol [Zyloprim] 100 mg PO QDAY 02/10/17 02/10/17 Unknown History Chlorthalidone 25 PO 02/10/17 Unknown History Famotidine [Pepcid] 20 mg PO BID #20 tablet 02/10/17 Unknown Rx Metoprolol [Lopressor TAB] 50 mg PO DAILY #60 tablet 02/10/17 Unknown Rx Prednisone [predniSONE 10 mg 10 mg PO .TAPER #1 tab.ds.pk 02/10/17 Unknown Rx (6-Day Pack, 21 Tabs)] diphenhydrAMINE [Benadryl CAP] 25 mg PO Q8HR PRN #15 capsule 02/10/17 Unknown Rx Ciprofloxacin HCl [Ciprofloxacin 500 mg PO Q12H #20 tab 04/27/17 Unknown Rx TAB] Hydrochlorothiazide [HCTZ] 25 mg PO QDAY #30 tablet 04/27/17 Unknown Rx Metoprolol [Lopressor TAB] 50 mg PO BID #30 tablet 04/27/17 Unknown Rx ALBUTEROL Inhaler [ProAir HFA 2 puff IH QID PRN #1 inhalation 08/25/17 Unknown Rx Inhaler] Acetaminophen [Acetaminophen TAB] 500 mg PO Q6HR PRN #30 tablet 08/25/17 Unknown Rx Benzonatate [Tessalon Perles] 100 mg PO Q8HR PRN #30 capsule 08/25/17 Unknown Rx Chlorthalidone 25 mg PO QDAY #30 tablet 08/25/17 Unknown Rx Levofloxacin [Levaquin] 750 mg PO QDAY #5 tablet 08/25/17 Unknown Rx amLODIPine [Norvasc] 10 mg PO DAILY #30 tab 08/25/17 Unknown Rx Potassium Chloride 10 meq PO QDAY #30 capsule.er 09/17/17 Unknown Rx Permethrin [Permethrin 1% lOTION] 120 ml TP ONCE #1 bottle 11/05/17 Unknown Rx diphenhydrAMINE [Benadryl CAP] 25 mg PO Q6HR 3 Days capsule 11/05/17 Unknown Rx Cephalexin [Keflex] 500 mg PO Q12HR #16 cap 11/20/17 Unknown Rx Ciprofloxacin HCl [Ciprofloxacin 500 mg PO Q12H #56 tab 11/20/17 Unknown Rx TAB] Hydrochlorothiazide [HCTZ] 25 mg PO QDAY #30 tablet 11/20/17 Unknown Rx Prednisone [predniSONE 10 mg 10 mg PO .TAPER #1 tab.ds.pk 11/20/17 Unknown Rx (6-Day Pack, 21 Tabs)] amLODIPine [Norvasc] 10 mg PO DAILY #30 tab 11/20/17 Unknown Rx Fluconazole [Diflucan TAB] 150 mg PO QDAY 3 Days #3 tablet 12/06/17 Unknown Rx Ketoconazole 2% [Nizoral] 1 applicatio TP BID 2 Days #1 tube 12/06/17 Unknown Rx Sulfamethoxazole/Trimethoprim 1 each PO BID 10 Days #20 tablet 12/06/17 Unknown Rx [Bactrim DS TAB] hydrOXYzine HCL [Atarax] 25 mg PO Q6HR PRN #20 tablet 12/06/17 Unknown Rx predniSONE [Deltasone] 20 mg PO BID 5 Days #10 tab 12/06/17 Unknown Rx Acetaminophen/Codeine [Tylenol 1 tab PO Q6H PRN #12 tab 12/31/17 Unknown Rx /Codeine # 3 tab] Ibuprofen [Motrin] 600 mg PO Q8H PRN #15 tablet 12/31/17 Unknown Rx Penicillin V Potassium 500 mg PO Q8H 10 Days #30 tablet 12/31/17 Unknown Rx Allopurinol [Zyloprim] 100 mg PO QDAY #30 tablet 04/07/18 Unknown Rx Triamcinolone 0.1% [Kenalog 0.1% 1 applic TP TID #60 gram 04/07/18 Unknown Rx CREAM] amLODIPine [Norvasc] 10 mg PO DAILY #30 tab 04/07/18 Unknown Rx ED Physical Exam - General Limitations: No Limitations General appearance: alert, in no apparent distress - Head Head exam: Present: atraumatic, normocephalic - Eye Eye exam: Present: PERRL, EOMI. Absent: scleral icterus - ENT ENT exam: Present: normal exam, mucous membranes dry - Neck Neck exam: Present: normal inspection, full ROM. Absent: meningismus - Respiratory Respiratory exam: Present: normal lung sounds bilaterally. Absent: wheezes, rales, rhonchi, chest wall tenderness - Cardiovascular Cardiovascular Exam: Present: regular rate, normal rhythm, normal heart sounds - GI/Abdominal GI/Abdominal exam: Present: soft, normal bowel sounds. Absent: distended, tenderness, guarding, rebound - Rectal Rectal exam: Present: deferred - Extremities Exam Extremities exam: Present: other (chronic lichenified rash right mid dorsal forearm, both anterior ankles, bandaged) - Back Exam Back exam: Present: normal inspection. Absent: tenderness - Neurological Exam Neurological exam: Present: alert, oriented X3, CN II-XII intact, other (normal finger to nose). Absent: motor sensory deficit - Skin Skin exam: Present: rash (chronic, scaly, lichenified, not draining, no erythema ,.) ED Course Vital Signs 04/07/18 04/07/18 04/07/18 04:06 05:19 13:30 Temperature 36.8 C 36.8 C Pulse Rate 82 77 84 Respiratory 18 16 16 Rate Blood Pressure 169/111 164/90 Blood Pressure 195/111 [Left] O2 Sat by Pulse 96 100 96 Oximetry ED Medical Decision Making - Lab Data Result diagrams: 04/07/18 05:30 04/07/18 05:30 - EKG Data -: EKG Interpreted by Me EKG shows normal: sinus rhythm, axis, intervals, QRS complexes, ST-T waves Rate: bradycardia - EKG Data When compared to previous EKG there are: no significant change (prior tracing of 09/16/2017) - Medical Decision Making Patient has mildly elevated blood pressure secondary to medication noncompliance , but is otherwise stable, has no findings suggestive of hypertensive emergency , and no findings of secondary end organ damage. Creatinine is normal, EKG is unchanged and essentially normal, and patient's findings and symptoms are nonspecific. My primary impression is that patient has secondary dehydration and symptoms secondary to relative dehydration recurrent alcohol abuse, but are not related to either blood pressure directly, coronary artery disease, or acute neurologic symptoms. He is stable for discharge, and will be given topical steroids for his rash, as well as reinstitution of his blood pressure medication amlodipine, which was started as single therapy at 10 mg daily, since his blood pressure is not significantly elevated at this visit. Allopurinol prescription provided at patient request for prophylaxis, as he is previously been on this medicine before, but is currently asymptomatic. - Differential Diagnosis hypertension, hypertensive urgency, hypertensive emergency, alcohol abuse Critical Care Time: No Critical care attestation.: If time is entered above; I have spent that time in minutes in the direct care of this critically ill patient, excluding procedure time. ED Disposition Clinical Impression: Asymptomatic hypertensive urgency, Alcohol abuse Disposition: [id number] TO HOME OR SELFCARE Is pt being admited?: No Does the pt Need Aspirin: No Condition: Stable Instructions: Chronic Hypertension (ED) Additional Instructions: We're restarting your blood pressure medicine, amlodipine, 10 mg, taken once daily. Keep a regular record of your blood pressure, 2-3 times per week, generally at the same time per day, without significant activity, and write this down in a notebook. The most important care unit and give for your blood pressure is noted to long-term trends, and not to be focused on any one particular abnormal reading. We believe you're dehydrated secondary from a recent alcohol binge, and wanted to drink plenty of fluids, particularly electrolyte rich fluids such as soups, broths, or Pedialyte. Abstain from alcohol, as this is likely causing your symptoms today, with dehydration. We have also provided topical ointment, triamcinolone, which is an anti- inflammatory steroid, free of skin rash. He may apply it 2 times per day. We recommend evaluation by testing engineer for a definitive diagnosis and additional treatment. There is no signs of infection or cellulitis today. Have repeat examination by primary care physician in one or 2 weeks to assess the control of your blood pressure, may make any adjustments as needed from that. Be sure to bring your blood pressure record logs with you to your doctor' s appointment. Prescriptions: Allopurinol [Zyloprim] 100 mg PO QDAY #30 tablet amLODIPine [Norvasc] 10 mg PO DAILY #30 tab Triamcinolone 0.1% [Kenalog 0.1% CREAM] 1 applic TP TID #60 gram Referrals: PRIMARY CARE, [Primary Care Provider] - 3-5 Days Time of Disposition: 15:04
[2018-04-07] MEDS ORDERED: NORVASC PO ONE (15:04)
[2018-04-07 15:14] VITALS: BP 145/87
== END 2018-04-07 15:22 | disposition home or self-care (01) ==
LOC: ED 03:40
DX: I16.0 Hypertensive urgency (principal); F10.10 Alcohol abuse, uncomplicated; R21 Rash and other nonspecific skin eruption; I10 Essential (primary) hypertension; K21.9 Gastro-esophageal reflux disease without esophagitis; F17.200 Nicotine dependence, unspecified, uncomplicated; Z88.8 Allergy status to other drugs, medicaments and biological substances
CPT/HCPCS: 36415; 80053; 85025; 93005; 93010; 99283

== ENCOUNTER 2021-01-25 09:47 | Emergency (ER) | payer OTHER ==
[2021-01-25 09:58] VITALS: BP 172/91
[2021-01-25] MEDS ORDERED: dexAMETHasone 20 MG/5 ML VIAL IM ONE (11:38)
[2021-01-25] MEDS ORDERED: COLCHICINE 0.6 MG TAB PO ONE (12:00)
[2021-01-25] MEDS ORDERED: HYDROcodone/ACETAMINOPHEN 10-325MG TAB PO ONE (12:42)
--- NOTE | 2021-01-25 13:05 | Emergency Department Report ---
ED Lower Extremity HPI - General Chief Complaint: Extremity Injury, Lower Stated Complaint: GOUT/RT KNEE SWOLLEN/HEADACHE Time Seen by Provider: 01/25/21 10:37 Source: patient Mode of arrival: Ambulatory Limitations: No Limitations - History of Present Illness Initial Comments: This is a 60-year-old male nontoxic, well nourished in appearance, no acute signs of distress presents to the ED with c/o of right knee and bilateral great toe pain several days. Patient stated has history of gout and symptoms are similar.. Patient denies any injuries or trauma. Patient denies any numbness, tingling, fever, chills, nausea, vomiting, chest pain, shortness of breath, headache, stiff neck. Patient denies any joint swelling or joint redness. Patient denies decreased range of motion. Patient stated has decreased gait due to pain. Patient stated allergies to lisinopril. -: days(s) Injury: Knee: Right, Toes: Right, Left Severity: mild Severity scale (0 -10): 8 Improves With: immobilization Worsens With: weight bearing, palpation Associated Symptoms: swelling, able to partially bear weight. denies: snap/pop sensation, numbness, tingling, unable to bear weight - Related Data Home Medications Medication Instructions Recorded Confirmed Last Taken Amlodipine Besylate [Norvasc] 5 mg PO DAILY 12/18/14 02/09/17 02/09/17 Allopurinol 02/10/17 Unknown Chlorthalidone 25 PO 02/10/17 Unknown allopurinoL [Zyloprim] 100 mg PO QDAY 02/10/17 02/10/17 Unknown Previous Rx's Medication Instructions Recorded Last Taken Type Cyclobenzaprine [Flexeril 10 MG 10 mg PO TID PRN #15 tablet 05/14/16 Unknown Rx TAB] Famotidine [Pepcid] 20 mg PO BID #20 tablet 02/10/17 Unknown Rx Metoprolol [Lopressor TAB] 50 mg PO DAILY #60 tablet 02/10/17 Unknown Rx Prednisone [predniSONE 10 mg 10 mg PO .TAPER #1 tab.ds.pk 02/10/17 Unknown Rx (6-Day Pack, 21 Tabs)] diphenhydrAMINE [Benadryl CAP] 25 mg PO Q8HR PRN #15 capsule 02/10/17 Unknown Rx Ciprofloxacin HCl [Ciprofloxacin 500 mg PO Q12H #20 tab 04/27/17 Unknown Rx TAB] Metoprolol [Lopressor TAB] 50 mg PO BID #30 tablet 04/27/17 Unknown Rx hydroCHLOROthiazide [HCTZ] 25 mg PO QDAY #30 tablet 04/27/17 Unknown Rx Acetaminophen [Acetaminophen TAB] 500 mg PO Q6HR PRN #30 tablet 08/25/17 Unknown Rx Albuterol Mdi (or & Nicu Only) 2 puff IH QID PRN #1 inhalation 08/25/17 Unknown Rx [ProAir HFA Inhaler] Benzonatate [Tessalon Perles] 100 mg PO Q8HR PRN #30 capsule 08/25/17 Unknown Rx Chlorthalidone 25 mg PO QDAY #30 tablet 08/25/17 Unknown Rx amLODIPine 10 mg PO DAILY #30 tab 08/25/17 Unknown Rx levoFLOXacin [Levaquin] 750 mg PO QDAY #5 tablet 08/25/17 Unknown Rx Potassium Chloride 10 meq PO QDAY #30 capsule.er 09/17/17 Unknown Rx Permethrin [Permethrin 1% lOTION] 120 ml TP ONCE #1 bottle 11/05/17 Unknown Rx diphenhydrAMINE [Benadryl CAP] 25 mg PO Q6HR 3 Days capsule 11/05/17 Unknown Rx Ciprofloxacin HCl [Ciprofloxacin 500 mg PO Q12H #56 tab 11/20/17 Unknown Rx TAB] Prednisone [predniSONE 10 mg 10 mg PO .TAPER #1 tab.ds.pk 11/20/17 Unknown Rx (6-Day Pack, 21 Tabs)] amLODIPine 10 mg PO DAILY #30 tab 11/20/17 Unknown Rx cephALEXin [Keflex] 500 mg PO Q12HR #16 cap 11/20/17 Unknown Rx hydroCHLOROthiazide [HCTZ] 25 mg PO QDAY #30 tablet 11/20/17 Unknown Rx Fluconazole (Nf) [Diflucan TAB] 150 mg PO QDAY 3 Days #3 tablet 12/06/17 Unknown Rx Ketoconazole 2% [Nizoral] 1 applicatio TP BID 2 Days #1 tube 12/06/17 Unknown Rx Sulfamethoxazole/Trimethoprim 1 each PO BID 10 Days #20 tablet 12/06/17 Unknown Rx [Bactrim DS TAB] hydrOXYzine HCL [Atarax] 25 mg PO Q6HR PRN #20 tablet 12/06/17 Unknown Rx predniSONE [Deltasone] 20 mg PO BID 5 Days #10 tab 12/06/17 Unknown Rx Acetaminophen/Codeine [Tylenol 1 tab PO Q6H PRN #12 tab 12/31/17 Unknown Rx /Codeine # 3 tab] Ibuprofen [Motrin] 600 mg PO Q8H PRN #15 tablet 12/31/17 Unknown Rx Penicillin V Potassium 500 mg PO Q8H 10 Days #30 tablet 12/31/17 Unknown Rx Triamcinolone 0.1% [Kenalog 0.1% 1 applic TP TID #60 gram 04/07/18 Unknown Rx CREAM] allopurinoL [Zyloprim] 100 mg PO QDAY #30 tablet 04/07/18 Unknown Rx amLODIPine 10 mg PO DAILY #30 tab 04/07/18 Unknown Rx Colchicine [Colcrys] 0.6 mg PO DAILY #1 tablet 01/25/21 Unknown Rx Naproxen 500 mg PO Q12H PRN #12 tablet 01/25/21 Unknown Rx Allergies Allergy/AdvReac Type Severity Reaction Status Date / Time lisinopril Allergy Severe Angioedema Verified 01/25/21 09:55 ED Review of Systems ROS: Stated complaint: GOUT/RT KNEE SWOLLEN/HEADACHE Other details as noted in HPI Comment: All other systems reviewed and negative Constitutional: denies: chills, fever Eyes: denies: eye pain, eye discharge, vision change ENT: denies: ear pain, throat pain Respiratory: denies: cough, shortness of breath, wheezing Cardiovascular: denies: chest pain, palpitations Endocrine: no symptoms reported Gastrointestinal: denies: abdominal pain, nausea, diarrhea Genitourinary: denies: urgency, dysuria Musculoskeletal: denies: back pain, joint swelling, arthralgia Skin: denies: rash, lesions Neurological: denies: headache, weakness, paresthesias Psychiatric: denies: anxiety, depression Hematological/Lymphatic: denies: easy bleeding, easy bruising ED Past Medical Hx - Past Medical History Hx Hypertension: Yes Hx GERD: Yes Additional medical history: Alcohol dependence, GOUT - Surgical History Past Surgical History?: No - Social History Smoking Status: Never Smoker Substance Use Type: None - Medications Home Medications: Home Medications Medication Instructions Recorded Confirmed Last Taken Type Amlodipine Besylate [Norvasc] 5 mg PO DAILY 12/18/14 02/09/17 02/09/17 History Cyclobenzaprine [Flexeril 10 MG 10 mg PO TID PRN #15 tablet 05/14/16 02/09/17 Unknown Rx TAB] Allopurinol 02/10/17 Unknown History Chlorthalidone 25 PO 02/10/17 Unknown History Famotidine [Pepcid] 20 mg PO BID #20 tablet 02/10/17 Unknown Rx Metoprolol [Lopressor TAB] 50 mg PO DAILY #60 tablet 02/10/17 Unknown Rx Prednisone [predniSONE 10 mg 10 mg PO .TAPER #1 tab.ds.pk 02/10/17 Unknown Rx (6-Day Pack, 21 Tabs)] allopurinoL [Zyloprim] 100 mg PO QDAY 02/10/17 02/10/17 Unknown History diphenhydrAMINE [Benadryl CAP] 25 mg PO Q8HR PRN #15 capsule 02/10/17 Unknown Rx Ciprofloxacin HCl [Ciprofloxacin 500 mg PO Q12H #20 tab 04/27/17 Unknown Rx TAB] Metoprolol [Lopressor TAB] 50 mg PO BID #30 tablet 04/27/17 Unknown Rx hydroCHLOROthiazide [HCTZ] 25 mg PO QDAY #30 tablet 04/27/17 Unknown Rx Acetaminophen [Acetaminophen TAB] 500 mg PO Q6HR PRN #30 tablet 08/25/17 Unknown Rx Albuterol Mdi (or & Nicu Only) 2 puff IH QID PRN #1 inhalation 08/25/17 Unknown Rx [ProAir HFA Inhaler] Benzonatate [Tessalon Perles] 100 mg PO Q8HR PRN #30 capsule 08/25/17 Unknown Rx Chlorthalidone 25 mg PO QDAY #30 tablet 08/25/17 Unknown Rx amLODIPine 10 mg PO DAILY #30 tab 08/25/17 Unknown Rx levoFLOXacin [Levaquin] 750 mg PO QDAY #5 tablet 08/25/17 Unknown Rx Potassium Chloride 10 meq PO QDAY #30 capsule.er 09/17/17 Unknown Rx Permethrin [Permethrin 1% lOTION] 120 ml TP ONCE #1 bottle 11/05/17 Unknown Rx diphenhydrAMINE [Benadryl CAP] 25 mg PO Q6HR 3 Days capsule 11/05/17 Unknown Rx Ciprofloxacin HCl [Ciprofloxacin 500 mg PO Q12H #56 tab 11/20/17 Unknown Rx TAB] Prednisone [predniSONE 10 mg 10 mg PO .TAPER #1 tab.ds.pk 11/20/17 Unknown Rx (6-Day Pack, 21 Tabs)] amLODIPine 10 mg PO DAILY #30 tab 11/20/17 Unknown Rx cephALEXin [Keflex] 500 mg PO Q12HR #16 cap 11/20/17 Unknown Rx hydroCHLOROthiazide [HCTZ] 25 mg PO QDAY #30 tablet 11/20/17 Unknown Rx Fluconazole (Nf) [Diflucan TAB] 150 mg PO QDAY 3 Days #3 tablet 12/06/17 Unknown Rx Ketoconazole 2% [Nizoral] 1 applicatio TP BID 2 Days #1 tube 12/06/17 Unknown Rx Sulfamethoxazole/Trimethoprim 1 each PO BID 10 Days #20 tablet 12/06/17 Unknown Rx [Bactrim DS TAB] hydrOXYzine HCL [Atarax] 25 mg PO Q6HR PRN #20 tablet 12/06/17 Unknown Rx predniSONE [Deltasone] 20 mg PO BID 5 Days #10 tab 12/06/17 Unknown Rx Acetaminophen/Codeine [Tylenol 1 tab PO Q6H PRN #12 tab 12/31/17 Unknown Rx /Codeine # 3 tab] Ibuprofen [Motrin] 600 mg PO Q8H PRN #15 tablet 12/31/17 Unknown Rx Penicillin V Potassium 500 mg PO Q8H 10 Days #30 tablet 12/31/17 Unknown Rx Triamcinolone 0.1% [Kenalog 0.1% 1 applic TP TID #60 gram 04/07/18 Unknown Rx CREAM] allopurinoL [Zyloprim] 100 mg PO QDAY #30 tablet 04/07/18 Unknown Rx amLODIPine 10 mg PO DAILY #30 tab 04/07/18 Unknown Rx Colchicine [Colcrys] 0.6 mg PO DAILY #1 tablet 01/25/21 Unknown Rx Naproxen 500 mg PO Q12H PRN #12 tablet 01/25/21 Unknown Rx ED Physical Exam - General Limitations: No Limitations General appearance: alert, in no apparent distress - Head Head exam: Present: atraumatic, normocephalic - Eye Eye exam: Present: normal appearance - Neck Neck exam: Present: normal inspection, full ROM - Respiratory Respiratory exam: Absent: respiratory distress - Cardiovascular Cardiovascular Exam: Present: regular rate - Extremities Exam Extremities exam: Present: normal inspection, full ROM, tenderness, normal capillary refill, joint swelling. Absent: pedal edema, calf tenderness - Expanded Lower Extremity Exam Right Hip exam: Present: normal inspection (Bilateral exam), full ROM (Bilateral exam). Absent: tenderness (Bilateral exam), swelling (Bilateral exam) Upper Leg exam: Present: normal inspection (Bilateral exam), full ROM (Bilateral exam). Absent: tenderness (Bilateral exam), swelling (Bilateral exam) Knee exam: Present: normal inspection (Bilateral exam), full ROM (Bilateral exam), tenderness (right knee), swelling (right knee), full knee extension (Bilateral exam). Absent: abrasion (Bilateral exam), laceration (Bilateral exam), ecchymosis (Bilateral exam), deformity (Bilateral exam), crepidus (Bilateral exam), dislocation (Bilateral exam), erythema (Bilateral exam), effusion (Bilateral exam), pain w/ pronation/supination (Bilateral exam), posterior draw sign (Bilateral exam), pain/laxity with valgus (Bilateral exam), pain/laxity with varus (Bilateral exam) Lower Leg exam: Present: normal inspection (Bilateral exam), full ROM (Bilateral exam). Absent: tenderness (Bilateral exam), swelling (Bilateral exam) Ankle exam: Present: normal inspection (Bilateral exam), full ROM (Bilateral exam). Absent: tenderness (Bilateral exam), swelling (Bilateral exam) Foot/Toe exam: Present: normal inspection (Bilateral exam), full ROM (Bilateral exam), tenderness (Bilateral exam), swelling (Bilateral exam great toe joiny). Absent: abrasion (Bilateral exam), laceration (Bilateral exam), ecchymosis (Bilateral exam), deformity (Bilateral exam), crepidus (Bilateral exam), dislocation (Bilateral exam), erythema (Bilateral exam), amputation (Bilateral exam), puncture wound (Bilateral exam), foreign body (Bilateral exam), calcaneal tenderness (Bilateral exam), tenderness at base of 5th metatarsal (Bilateral exam), nail avulsion (Bilateral exam), subungual hematoma (Bilateral exam) Neuro vascular tendon exam: Present: no vascular compromise Gait: Positive: observed and limited by pain - Back Exam Back exam: Present: full ROM - Neurological Exam Neurological exam: Present: alert, oriented X3 - Psychiatric Psychiatric exam: Present: normal affect, normal mood - Skin Skin exam: Present: warm, dry, intact, normal color. Absent: rash ED Course Vital Signs 01/25/21 01/25/21 09:55 12:48 Temperature 98.3 F Pulse Rate 89 Respiratory 18 18 Rate Blood Pressure 172/91 O2 Sat by Pulse 97 Oximetry - Reevaluation(s) Reevaluation #1: 01/25/21 12:55 Patient is speaking in full sentences with no signs of distress noted. ED Lower Extremity MDM - Lab Data Lab Results 01/25/21 Range/Units 10:58 Uric Acid 8.0 H (3.5-7.6) mg/dL - Medical Decision Making This is a 60-year-old male that presents with gout to right knee and bilateral great toe gout flare. Patient is stable and was examined by me. No ecchymosis. no joint redness or swelling. Not warm to touch. No signs of cellulites present. Patient received Decadron and colchicine and [place] for pain. Patient stated family member will drive the patient home after discharge due to possible drowsiness. Patient is discharged with colchicine and naproxen. At time of discharge, the patient does not seem toxic or ill in appearance. No acute signs of distress noted. Patient agrees to discharge treatment plan of care. No further questions noted by the patient. Critical care attestation.: If time is entered above; I have spent that time in minutes in the direct care of this critically ill patient, excluding procedure time. ED Disposition Clinical Impression: Gout flare Qualifiers: Gout site: knee Gout etiology: unspecified cause Laterality: right Qualified Code(s): M10.9 - Gout, unspecified Disposition: TO HOME OR SELFCARE Is pt being admited?: No Does the pt Need Aspirin: No Condition: Stable Instructions: Low-Purine Eating Plan Additional Instructions: Follow-up with a primary care doctor in 3-5 days or if symptoms worsen and continue return to emergency room as soon as possible. Prescriptions: Colchicine [Colcrys] 0.6 mg PO DAILY #1 tablet Naproxen 500 mg PO Q12H PRN #12 tablet PRN Reason: Pain , Severe (7-10) Referrals: PRIMARY CARE, [Primary Care Provider] - 3-5 Days DOMINIQUE RICHARDS MD [Staff Physician] - 3-5 Days Time of Disposition: 13:11
== END 2021-01-25 13:32 | disposition home or self-care (01) ==
LOC: ED 09:47
DX: M10.9 Gout, unspecified (principal); I10 Essential (primary) hypertension; K21.9 Gastro-esophageal reflux disease without esophagitis; Z79.899 Other long term (current) drug therapy; Z88.8 Allergy status to other drugs, medicaments and biological substances
CPT/HCPCS: 36415; 84550; 96372; 99283; J1100

== ENCOUNTER 2021-06-27 10:46 | Emergency (ER) | payer SELFPAY ==
[2021-06-27 11:14] VITALS: BP 181/87
== END 2021-06-27 11:29 ==
LOC: ED 10:46
DX: M25.529 Pain in unspecified elbow (principal); M79.605 Pain in left leg; M79.604 Pain in right leg; Z53.21 Procedure and treatment not carried out due to patient leaving prior to being seen by health care provider